=== PATIENT | female | born 1945 | race Caucasian/White ===

== ENCOUNTER 2018-06-08 09:07 | Emergency (ER) | payer MEDICARE, OTHER ==
[~2018-06-08] VITALS: Ht 167.6 cm; Wt 90.7 kg
[2018-06-08] MEDS ORDERED: ONDANSETRON HCL INJ 2 MG/ML VIAL IV STA (09:31)
[2018-06-08] MEDS ORDERED: SODIUM CHLORIDE 0.9% 1000ML 1,000 ML IV STA (09:31)
[2018-06-08] MEDS ORDERED: METHYLPREDNISOLONE SOD SUCC 125 MG/2ML VIAL IV STA (09:31)
[2018-06-08] MEDS ORDERED: MORPHINE SULFATE 2 MG/ML SYR IV STA (09:31)
[2018-06-08] MEDS ORDERED: FAMOTIDINE 20 MG/2 ML VIAL IV STA (09:35)
[2018-06-08 09:44] LABS: BASOPHILS % 0.4 % (0.0-1.0); EOSINOPHILS # (AUTO) 0.1 (0.0-0.4); EOSINOPHILS % 2.3 % (0.0-6.0); HEMATOCRIT 43.4 % (34.2-44.1); HEMOGLOBIN 14.4 g/dL (12.0-16.0); LYMPHOCYTES # (AUTO) 0.8 (1.0-3.2); LYMPHOCYTES % 14.6 % (18.0-39.1); MEAN CORPUSCULAR HEMOGLOBIN 29.4 pg (28-32); MEAN CORPUSCULAR HGB CONC 33.2 g/dL (31-35); MEAN CORPUSCULAR VOLUME 88.8 fL (81-99); MONOCYTES # (AUTO) 0.6 (0.2-0.8); MONOCYTES % 10.9 % (4.4-11.3); NEUTROPHILS # (AUTO) 4.1 (2.1-6.9); NEUTROPHILS % 71.3 % (38.7-80.0); PLATELET COUNT 185 x10e3/uL (140-360); RED BLOOD COUNT 4.89 x10e6/uL (3.6-5.1)
[2018-06-08] MEDS ORDERED: DIPHENHYDRAMINE HCL INJ 50 MG/ML VIAL IV ONE (09:45)
[2018-06-08 09:57] LABS: CLARITY,URINE SL CLOUDY (CLEAR); COLOR,URINE AMBER (YELLOW); LEUKOCYTE ESTERASE ,URINE TRACE (NEGATIVE); NITRITE,URINE NEGATIVE (NEGATIVE)
[2018-06-08 09:58] LABS: BILIRUBIN,URINE 2+ (NEGATIVE); KETONES,URINE NEGATIVE (NEGATIVE); PROTEIN,URINE DIPSTICK 1+ (NEGATIVE); URINE UROBILINOGEN 4 mg/dL (0.2 - 1)
[2018-06-08 10:07] LABS: BACTERIA,URINE MODERATE /HPF; EPITHELIAL CELLS,URINE MODERATE /LPF
[2018-06-08 10:10] LABS: ALANINE AMINOTRANSFERASE 19 IU/L (0-55); ALBUMIN 3.3 g/dL (3.5-5.0); ALKALINE PHOSPHATASE 58 IU/L (40-150); BLOOD UREA NITROGEN 20 mg/dL (7-26); BUN/CREATININE RATIO 25 (6-25); CALCIUM 9.8 mg/dL (8.4-10.2); CARBON DIOXIDE 25 mmol/L (22-29); CHLORIDE 99 mmol/L (98-107); CREATININE, SERUM 0.79 mg/dL (0.57-1.11); EST GLOMERULAR FILTRATION RATE > 60 ML/MIN (60-); GLUCOSE 120 mg/dL (74-118); SODIUM 136 mmol/L (136-145)
--- NOTE | 2018-06-08 12:37 | Diagnostic Imaging Report ---
EXAM: CT Abdomen and Pelvis WITHOUT contrast INDICATION: COMPARISON: None. TECHNIQUE: Abdomen and pelvis were scanned utilizing a multidetector helical scanner from the lung base to the pubic symphysis without administration of IV contrast. Absence of intravenous contrast decreases sensitivity for detection of focal lesions and vascular pathology. Coronal and sagittal reformations were obtained. Routine protocol was performed. IV CONTRAST: None. ORAL CONTRAST: Water RADIATION DOSE: Total DLP: 698.2 mGy*cm Estimated effective dose: (DLP x 0.015 x size factor) mSv COMPLICATIONS: None FINDINGS: LINES and TUBES: None. LOWER THORAX: A ground glass nodular opacity is present in the left lower lobe, partially seen. HEPATOBILIARY: Two calcified foci are noted in the liver, reflective of prior granulomatous disease. Multiple subcentimeter foci are present in the liver, too small to characterize, but likely cysts. There is a 1.2 cm lesion in the left hepatic lobe (18 HU). No biliary ductal dilation. GALLBLADDER: No radio-opaque stones or sludge. No wall thickening. SPLEEN: No splenomegaly. PANCREAS: No focal masses or ductal dilatation. ADRENALS: No adrenal nodules KIDNEYS/URETERS: No hydronephrosis. No cystic or solid mass lesions. No stones. GI TRACT: No abnormal distention, wall thickening, or evidence of bowel obstruction. There are diverticula within the colon without evidence of diverticulitis. Appendix is normal. PELVIC ORGANS/BLADDER: Unremarkable. LYMPH NODES: No lymphadenopathy. VESSELS: There is moderate atherosclerotic disease in the aorta and major arterial branches. PERITONEUM / RETROPERITONEUM: No free air or fluid. BONES: Unremarkable. SOFT TISSUES: Unremarkable. IMPRESSION: No acute abnormality in the abdomen or pelvis. Normal appendix. Sigmoid diverticulosis without CT evidence of diverticulitis. A 1.2 cm indeterminate left hepatic lobe lesion. If there is clinical suspicion for malignancy, correlation with prior imaging or an MRI with contrast may be considered for evaluation. Groundglass nodular opacity in the left lower lobe, which may be infectious or inflammatory. Per clinical history, the patient has a history of breast cancer and prior resection of left lower lung. Correlation with outside imaging or follow-up chest CT per protocol is recommended. Multiple subcentimeter hepatic lesions, to small to characterize, but likely represent cysts. Signed by: Dr. Donny Diaz MD on 06/08/2018 12:34 PM
[2018-06-08] MEDS ORDERED: GADOBENATE DIMEGLUMINE 0 ML IV ONE (14:04)
--- NOTE | 2018-06-08 15:34 | Diagnostic Imaging Report ---
EXAM: MR Abdomen WITHOUT Contrast INDICATION: \S\R/O LIVER METS \S\N COMPARISON: Same day CT TECHNIQUE: Multiplanar and multisequence imaging was performed of the abdomen without contrast. Exam aborted prior to completion secondary to patient request. In and out of phase, DWI/ADC, axial T2 FRFSE, coronal SSFSE, coronal 2D FIESTA FS were obtained. IV Contrast: None Oral Contrast: None Medications: None COMPLICATIONS: None FINDINGS: Motion artifacts, aortic pulsation artifacts, lack of IV contrast, and incomplete exam limits evaluation. LOWER THORAX: Previously noted left lower lobe groundglass opacities are better seen on the prior CT.. HEPATOBILIARY: Multiple T2 hyperintense lesions in the liver measuring up to 1.9 cm in the left hepatic lobe and 1.7 cm in the right hepatic lobe. Motion artifacts limit evaluation on opposed phase images. No biliary ductal dilation. GALLBLADDER: No stones or sludge. No wall thickening. SPLEEN: No splenomegaly. PANCREAS: No focal masses or ductal dilatation. ADRENALS: No adrenal nodules KIDNEYS/URETERS: No hydronephrosis. T2 hyperintense 0.7 centimeter lesion in the left inferior renal pole. GI TRACT: No abnormal distention, wall thickening, or evidence of bowel obstruction. LYMPH NODES: No lymphadenopathy. VESSELS: Limited evaluation. PERITONEUM / RETROPERITONEUM: No free fluid. BONES: No suspicious marrow signal abnormalities. SOFT TISSUES: Unremarkable. IMPRESSION: 1. Limited evaluation as exam was aborted prior to completion per patient request. 2. Previously noted lesions in the liver appear T2 hyperintense which could indicate cysts but are otherwise incompletely evaluated. Consider contrast-enhanced CT or ultrasound for further evaluation. Signed by: DR. Harsha Nunes MD on 06/08/2018 3:30 PM
[2018-06-08] MEDS ORDERED: CEFTRIAXONE SOD 1 GM VIAL IV ONE (15:45)
[2018-06-08] MEDS ORDERED: INSULIN REGULAR, HUMAN 100 UNIT/1 ML 3ML VIAL ONE (16:56)
== END 2018-06-08 16:36 | disposition home or self-care (01) ==
LOC: ER 09:07
DX: R10.31 Right lower quadrant pain (principal); R10.32 Left lower quadrant pain; N30.91 Cystitis, unspecified with hematuria
CPT/HCPCS: 36415; 74176; 74181; 80053; 81001; 85025; 87086; 99284; J0696; J2270; J2405; J7030

== ENCOUNTER 2019-02-18 05:15 | Emergency (ER) | payer MEDICARE, OTHER ==
[~2019-02-18] VITALS: Ht 167.6 cm; Wt 90.7 kg
--- OUTSIDE RECORDS SUMMARY | 2019-02-18 05:18 | XMS REPORT | Encounter Summary ---
Author Organization Unknown Address [address] [place] [id number] Phone [phone] Care Team Providers Care Fibreglass Lay Up Worker Name Role Phone Dr. Suzanna Reddy 3 [phone] Bianca Luis MD 3 [phone] Romi Cedeño MD 82 [phone] Deandra Ramirez MD 2 [phone] Deja Ware (Daughter) 61 [phone] Faraz Araya MD 107 [phone] Luis Barrios DPM 120 [phone] Kendra Freedman MD 198 [phone] Reason for Visit Medicare CPX WWE Instructions 1. Gynecologic examination pap, IG + HPV mRNA E6/E7 2. Malignant tumor of breast 3. Asthma 4. Body mass index 30+ - obesity body mass index: care instructions learning about healthy weight 5. Screening for malignant neoplasm of breast 6. Screening for osteoporosis 7. Screening for malignant neoplasm of colon 8. Elevated blood-pressure reading without diagnosis of hypertension Discussion Note: None recorded. Plan of Care Reminders Provider Appointments None recorded. Lab Pap, IG + HPV mRNA E6/E7 11/05/2018 [facility] Laboratory Referral None recorded. Procedures None recorded. Surgeries None recorded. Imaging None recorded. Medications Name Start Date Advair Diskus 250 mcg-50 mcg/dose powder for inhalation Inhale 2 puffs every 24 hours by inhalation route as needed. EpiPen 2-Juan 0.3 mg/0.3 mL injection, auto-injector PRN Xolair 2 injections Unknown strength ONCE A MONTH Zyrtec 10 mg tablet Take 1 tablet every day by oral route. Medications Administered None recorded. Vitals Height Weight BMI Blood Pressure 5 ft 4.6 in 196 lbs 33 kg/m2 140/90 mm[Hg] Lab Results None recorded. Allergies Code Code System Name Reaction Severity Status Onset 5933 RxNorm Iodine Active 12/30/2016 2670 RxNorm Codeine Vomiting Active 5933 RxNorm Iodine Rash Active Problems Name Status Onset Date Source Malignant Tumor of Breast Active 01/02/2017 Body Mass Index 30+ - Obesity Active 01/02/2017 Asthma Active 01/02/2017 Diarrhea Active 01/02/2017 Monocytosis Active 01/09/2017 Steatosis of Liver Active 01/09/2017 Tachycardia Active 01/09/2017 Elevated Blood-pressure Reading without Diagnosis of Hypertension Active 01/09/2017 Procedures Date Name Performed by 12/07/2016 Breast Surgery Information not available 12/21/2015 Colonoscopy Information not available Vaccine List Vaccine Type influenza, high dose seasonal 07/27/2016 influenza, unspecified formulation 06/22/2017 pneumococcal polysaccharide PPV23 07/27/2016 Tdap 10/09/2015 zoster 07/27/2016 Social History Smoking Status Former Smoker (1/2 PPD) Past Encounters 11/05/2018 Gynecologic Examination; Malignant Tumor of Breast; Asthma; Body Mass Index 30+ - Obesity; Screening for Malignant Neoplasm of Breast; Screening for Osteoporosis; Screening for Malignant Neoplasm of Colon; Elevated Blood-pressure Reading without Diagnosis of Hypertension Suzanna Reddy MD: [address] [place] [address], Ph. History of Present Illness Note:<div>73yo female presents for WWE with Pap. Last visit was [facility] on 09/17/18. Last Pap exam about 5yrs ago. No hx of abnormal Pap. No STDs. . No C- sections. Hx of tubal ligation in 1976. Menopause about age 49. Took HRT for several years, but then stopped. Hx of left breast cancer in 2016. Followed annually by Dr Deandra Guzman. </div><div>Is scheduled for mammogram in next month in Nov 2018.</div><div>Is scheduled to see YULIYA Shine next week.</div>< div>Is scheduled for next Xolair injection tomorrow with Dr Ontiveros. Goes monthly for one shot in each arm.</div><div>
</div><div>PMHx:</div><div>Asthma - entire life. Stable. Uses ProAir & Advair inhalers. Hospitalized in 2004 for partial lung resection for infection (thought it was cancer). Father from lung cancer at age 75yo (asbestos exposure). Mother had Alzheimers. Pt smoked briefly age 19, but didn't take it up. Prednisone as needed. 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 Has Epipen if needed.</div><div>Family hx of DM in brother & father.</div>< div>Left breast cancer - 2017. Had lumpectomy & XRT. Dr Ramirez. Goes annually to [facility] - had last mammogram in 06/2018.</div><div>Last colonoscopy 2015, Dr Araya - repeat in 5yrs.</div><div>Hx of tachycardia. Followed annually by cardiology, Dr. Cedeño in [place]. Last visit in 06/2018. Has white coat syndrome. Measures bp at home <140/90.</div><div>
</div>Pt without c/o today. No SOB or CP. No Lightheadedness. Review of Systems:ROS as noted in the [facility] Review of Systems Comprehensive General Adult ROS Reported By: Patient Constitutional: Constitutional: no fever Eyes: Eyes: no vision change Cardiovascular: Cardiovascular: no chest pain Respiratory: Respiratory: no cough, no wheezing, no shortness of breath Gastrointestinal: Gastrointestinal: no abdominal pain Neurologic: Neurologic: no loss of consciousness, no headaches Psychiatric: Psych: no depression, no alcohol abuse, no anxiety, no suicidal thoughts Physical Exam General Adult Exam (Female) Reported By: Patient Patient Access Registrar: Patient Access Registrar: present Constitutional: General Appearance: healthy-appearing, well-developed, obese. Level of Distress: NAD. Ambulation: ambulating normally Psychiatric: Insight: good judgement. Mental Status: active and alert, normal mood, normal affect. Orientation: to time, to place, to person. Memory: recent memory normal, remote memory normal Head: Head: normocephalic, atraumatic Eyes: Lids and Conjunctivae: non-injected, no discharge, no pallor. Pupils: PERRLA. EOM: EOMI. Sclerae: non-icteric ENMT: Ears: EACs clear, TMs clear. Hearing: no hearing loss. Oropharynx: moist mucous membranes, no erythema Neck: Neck: supple. Lymph Nodes: no cervical LAD. Thyroid: no enlargement, non- tender, no nodules Lungs: Respiratory effort: no dyspnea. Auscultation: breath sounds normal, good air movement, no wheezing, no rales/crackles Cardiovascular: Heart Auscultation: RRR, normal S1, normal S2, no murmurs. Neck vessels: no carotid bruits. Pulses including femoral / pedal: normal throughout Breast: Breast: normal appearance, no masses, no abnormal secretions, asymmetry; Well-healed scar left breast LLQ laterally Abdomen: Bowel Sounds: normal. Inspection and Palpation: soft, non-distended, no tenderness Female : External genitalia: normal, no lesions, no rash. Vagina: moist mucosa, no discharge, atrophic mucosa. Cervix: no discharge, no cervical motion tenderness, no inflammation, sample taken for Pap smear. Uterus: midline, smooth, normal size, non-tender. Adnexae: size WNL, no adnexal mass, no adnexal tenderness Musculoskeletal:: Motor Strength and Tone: normal motor strength. Joints, Bones, and Muscles: normal movement of all extremities. Extremities: no edema, no varicosities Neurologic: Gait and Station: normal gait. Cranial Nerves: grossly intact. Sensation: grossly intact Skin: Inspection and palpation: no rash, no lesions Back: Thoracolumbar Appearance: normal curvature
--- OUTSIDE RECORDS SUMMARY | 2019-02-18 05:18 | XMS REPORT ---
Author Author [facility] Address Unknown Phone Unavailable Care Team Providers Care Oil Derrick Operator Name Role Phone Adele MORLEY Unavailable Unavailable Problems This patient has no known problems. Allergies, Adverse Reactions, Alerts This patient has no known allergies or adverse reactions. Medications This patient has no known medications. Results Test Description Test Time Test Comments Text Results Atomic Results Result Comments BREAST ULTRASOUND BILATERAL 2018-12-18 10:24:25 - DIAG MAMM BILATERAL AJ CAD DIGITALBILATERAL DIGITAL DIAGNOSTIC MAMMOGRAM 3D/2D WITH CAD: 12/17/2018CLINICAL: Previous breast cancer. Digital breast tomosynthesis was performed in addition to routine CC and MLO views. Current mammographic images were evaluated by either a Nimbus Data M-Vu or a BR[employer]LF ImageChecker CAD (computer aided detection system). Comparison is made to exams dated 06/04/2018 [facility], 12/05/2017 mammogram, and 07/13/2017 mammogram - [facility]. There are scattered fibroglandular tissues in both breasts. There are post operative findings in the left breast. No suspicious mass, architectural distortion, malignant type calcification, or lymph node abnormality detected. INCOMPLETE ASSESSMENT: ADDITIONAL IMAGING EVALUATION RECOMMENDEDUltrasound pending for additional evaluation. Resume annual screening mammography in one year. - BREAST ULTRASOUND BILATERALULTRASOUND OF BOTH BREASTS AND BOTH AXILLA: 12/17/2018Comparison is made to exams dated 06/04/2018 mammogram, 12/05/2017 mammogram, and 07/13/2017 mammogram - [facility]. Real-time ultrasound of both breasts and both axilla was performed. No abnormalities were seen sonographically in either breast or either axilla. Clinical breast exam was unremarkable.IMPRESSION: NEGATIVE There is no sonographic evidence of malignancy. Patient has been informed that she should have a screening mammo gram and supplemental ultrasound in 1 year.Deandra Ramirez M.D. dm/:12/18/2018 10:24:25 Advertising Account Executive: Yazmin MOJICA, [facility] sent: BIRADS 1-2 Combo FU Letter Mammogram BI-RADS: 0 Indeterminate Ultrasound BI-RADS: 1 Negative DIAG MAMM BILATERAL AJ CAD DIGITAL 2018-12-18 10:24:25 - DIAG MAMM BILATERAL AJ CAD DIGITALBILATERAL DIGITAL DIAGNOSTIC MAMMOGRAM 3D/2D WITH CAD: 12/17/2018CLINICAL: Previous breast cancer. Digital breast tomosynthesis was performed in addition to routine CC and MLO views. Current mammographic images were evaluated by either a Nimbus Data M-Vu or a [employer] ImageChecker CAD (computer aided detection system). Comparison is made to exams dated 06/04/2018 [facility], 12/05/2017 mammogram, and 07/13/2017 mammogram - [facility]- . There are scattered fibroglandular tissues in both breasts. There are post operative findings in the left breast. No suspicious mass, architectural distortion, malignant type calcification, or lymph node abnormality detected. INCOMPLETE ASSESSMENT: ADDITIONAL IMAGING EVALUATION RECOMMENDEDUltrasound pending for additional evaluation. Resume annual screening mammography in one year. - BREAST ULTRASOUND BILATERALULTRASOUND OF BOTH BREASTS AND BOTH AXILLA: 12/17/2018Comparison is made to exams dated 06/04/2018 mammogram, 12/05/2017 mammogram, and 07/13/2017 mammogram - [facility]-. Real-time ultrasound of both breasts and both axilla was performed. No abnormalities were seen sonographically in either breast or either axilla. Clinical breast exam was unremarkable.IMPRESSION: NEGATIVE There is no sonographic evidence of malignancy. Patient has been informed that she should have a screening mammo gram and supplemental ultrasound in 1 year.Deandra Ramirez M.D. dm/:12/18/2018 10:24:25 Advertising Account Executive: Yazmin MOJICA, [facility] sent: BIRADS 1-2 Combo FU Letter Mammogram BI-RADS: 0 Indeterminate Ultrasound BI-RADS: 1 Negative MRI ABDOMEN WO 2018-06-08 15:21:00 [place] [address] Patient Name: ANA MARIA HATCH MR #: [id number] : 1945 Age/Sex: 72/F Req #: [id number] [facility] Physician: Ordered by: HARI MORLEY MD Report #: [id number] Location: ER Room/Bed: Procedure: [id number] MRI/MRI ABDOMEN WO Exam Date: Exam Time: REPORT STATUS: Signed EXAM: MR Abdomen WITHOUT Contrast INDICATION: COMPARISON: Same day CT TECHNIQUE: Multiplanar and multisequence imaging was performed of the abdomen without contrast. Exam aborted prior to completion secondary to patient request. In and out of phase, DWI/ADC, axial T2 FRFSE, coronal SSFSE, coronal 2D FIESTA FS were obtained. IV Contrast: None Oral Contrast: None Medications: None COMPLICATIONS: None FINDINGS: Motion artifacts, aortic pulsation artifacts, lack of IV contrast, and incomplete exam limits evaluation. LOWER THORAX: Previously noted left lower lobe groundglass opacities are better seen on the prior CT.. HEPATOBILIARY: Multiple T2 hyperintense lesions in the liver measuring up to 1.9 cm in the left hepatic lobe and 1.7 cm in the right hepatic lobe. Motion artifacts limit evaluation on opposed phase images. No biliary ductal dilation. GALLBLADDER: No stones or sludge. No wall thickening. SPLEEN: No splenomegaly. PANCREAS: No focal masses or ductal dilatation. ADRENALS: No adrenal nodules KIDNEYS/URETERS: No hydronephrosis. T2 hyperintense 0.7 centimeter lesion in the left inferior renal pole. GI TRACT: No abnormal distention, wall thickening, or evidence of bowel obstruction. LYMPH NODES: No lymphadenopathy. VESSELS: Limited evaluation. PERITONEUM / RETROPERITONEUM: No free fluid. BONES: No suspicious marrow signal abnormalities. SOFT TISSUES: Unremarkable. IMPRESSION: 1. Limited evaluation as exam was aborted prior to completion per patient request. 2. Previously noted lesions in the liver appear T2 hyperintense which could indicate cysts but are otherwise incompletely evaluated. Consider contrast-enhanced CT or ultrasound for further evaluation. Signed by: DR. Harsha Dempsey MD on 06/08/2018 3:30 PM Dictated By: HARSHA DEMPSEY MD 1530 Transcribed By: MARY on 06/08/18 1530 COPY TO: HARI MORLEY MD CT ABDOMEN/PELVIS WO 2018-06-08 12:13:00 [place] [address] Patient Name: ANA MARIA HATCH MR #: [id number] : 1945 Age/Sex: 72/F Req #: [id number] Adm Physician: Ordered by: HARI MORLEY MD Report #: [id number] Location: ER Room/Bed: Procedure: [id number] CT/CT ABDOMEN/PELVIS WO Exam Date: 06/08/18 Exam Time: 1130 REPORT STATUS: Signed EXAM: CT Abdomen and Pelvis WITHOUT contrast INDICATION: COMPARISON: None. TECHNIQUE: Abdomen and pelvis were scanned utilizing a multidetector helical scanner from the lung base to the pubic symphysis without administration of IV contrast. Absence of intravenous contrast decreases sensitivity for detection of focal lesions and vascular pathology. Coronal and sagittal reformations were obtained. Routine protocol was performed. IV CONTRAST: None. ORAL CONTRAST: Water RADIATION DOSE: Total DLP: 698.2 mGy*cm Estimated effective dose: (DLP x 0.015 x size factor) mSv COMPLICATIONS: None FINDINGS: LINES and TUBES: None. LOWER THORAX: A ground glass nodular opacity is present in the left lower lobe, partially seen. HEPATOBILIARY: Two calcified foci are noted in the liver, reflective of prior granulomatous disease. Multiple subcentimeter foci are present in the liver, too small to characterize, but likely cysts. There is a 1.2 cm lesion in the left hepatic lobe (18 HU). No biliary ductal dilation. GALLBLADDER: No radio-opaque stones or sludge. No wall thickening. SPLEEN: No splenomegaly. PANCREAS: No focal masses or ductal dilatation. ADRENALS: No adrenal nodules KIDNEYS/URETERS: No hydronephrosis. No cystic or solid mass lesions. No stones. GI TRACT: No abnormal distenti on, wall thickening, or evidence of bowel obstruction. There are diverticula within the colon without evidence of diverticulitis. Appendix is normal. PELVIC ORGANS/BLADDER: Unremarkable. LYMPH NODES: No lymphadenopathy. VESSELS: There is moderate atherosclerotic disease in the aorta and major arterial branches. PERITONEUM / RETROPERITONEUM: No free air or fluid. BONES: Unremarkable. SOFT TISSUES: Unremarkable. IMPRESSION: No acute abnormality in the abdomen or pelvis. Normal appendix. Sigmoid diverticulosis without CT evidence of diverticulitis. A 1.2 cm indeterminate left hepatic lobe lesion. If there is clinical suspicion for malignancy, correlation with prior imaging or an MRI with contrast may be considered for evaluation. Groundglass nodular opacity in the left lower lobe, which may be infectious or inflammatory. Per clinical history, the patient has a history of breast cancer and prior resection of left lower lung. Correlation with outside imaging or follow-up chest CT per protocol is recommended. Multiple subcentimeter hepatic lesions, to small to characterize, but likely represent cysts. Signed by: Dr. Timothy Carvalho MD on 06/08/2018 12:34 PM Dictated By: TIMOTHY CARVALHO MD 1234 Transcribed By: MARY on 06/08/18 1234 COPY TO: HARI MORLEY MD
[2019-02-18] MEDS ORDERED: HYDROCODONE/APAP 7.5MG-325MG 1 EA TAB PO PRN (05:30)
--- NOTE | 2019-02-18 06:26 | Diagnostic Imaging Report ---
Exam: AP pelvis and right hip History: Pain Comparison: None. Findings: No fracture or malalignment. Joint spaces preserved. No abnormal soft tissue calcification or soft tissue defect. Impression: No acute osseous abnormality Signed by: Dr. Juan J Pak M.D. on 02/18/2019 6:22 AM
== END 2019-02-18 07:06 | disposition home or self-care (01) ==
LOC: ER 05:15
DX: M25.551 Pain in right hip (principal); M70.71 Other bursitis of hip, right hip; J45.909 Unspecified asthma, uncomplicated; Z85.3 Personal history of malignant neoplasm of breast
CPT/HCPCS: 99283

== ENCOUNTER 2020-07-03 13:59 | Inpatient (IN) | payer MEDICARE, OTHER ==
[~2020-07-03] VITALS: Ht 167.6 cm; Wt 90.7 kg
[2020-07-03] MEDS ORDERED: METHYLPREDNISOLONE SOD SUCC 125 MG/2ML VIAL IV STA (14:07)
[2020-07-03] MEDS ORDERED: SODIUM CHLORIDE 0.9% 1000ML 1,000 ML IV STA (14:07)
[2020-07-03] MEDS ORDERED: ALBUTEROL/IPRATROPIUM 3 ML NEB ONE (14:12)
[2020-07-03] MEDS ORDERED: METHYLPREDNISOLONE SOD SUCC 125 MG/2ML VIAL ONE (14:13)
[2020-07-03] MEDS ORDERED: ALBUTEROL/IPRATROPIUM 3 ML NEB NEB ONE ×2 (14:15→17:30)
--- NOTE | 2020-07-03 15:19 | Diagnostic Imaging Report ---
TECHNIQUE: Frontal view of the chest. INDICATION: ^SOB ^[id number] ^[id number] COMPARISON: None DISCUSSION: Limited evaluation due to portable technique. Lines and hardware: Overlying EKG leads are noted Heart and mediastinum: Cardiomediastinal silhouette is within normal limits. Central vascular congestion is noted. Lungs and pleura: Prominent interstitial markings are noted. Left mid lung scarring is noted. Negative for focal consolidation, large effusion or pneumothorax. Soft tissues and bones: No acute abnormality. IMPRESSION: 1. Negative for focal consolidation. 2. Central vascular congestion and prominent interstitial markings can be seen in patients with fluid overload however findings are accentuated by portable AP technique. Signed by: Guy Crowe MD on 07/03/2020 3:15 PM
[2020-07-03 15:26] LABS: BASOPHILS # (AUTO) 0.1 (0.0-0.1); BASOPHILS % 0.8 % (0.0-1.0); EOSINOPHILS # (AUTO) 1.4 (0.0-0.4); EOSINOPHILS % 16.1 % (0.0-6.0); HEMATOCRIT 39.7 % (34.2-44.1); HEMOGLOBIN 12.6 g/dL (12.0-16.0); LYMPHOCYTES # (AUTO) 1.9 (1.0-3.2); LYMPHOCYTES % 22.5 % (18.0-39.1); MEAN CORPUSCULAR HEMOGLOBIN 28.6 pg (28-32); MEAN CORPUSCULAR HGB CONC 31.7 g/dL (31-35); MONOCYTES # (AUTO) 1.1 (0.2-0.8); MONOCYTES % 12.7 % (4.4-11.3); NEUTROPHILS # (AUTO) 4.1 (2.1-6.9); NEUTROPHILS % 47.6 % (38.7-80.0); PLATELET COUNT 301 x10e3/uL (140-360); RED BLOOD COUNT 4.41 x10e6/uL (3.6-5.1); RED CELL DISTRIBUTION WIDTH 13.6 % (11.7-14.4)
[2020-07-03 15:36] LABS: INR 0.93; PROTHROMBIN TIME 12.9 seconds (11.9-14.5)
[2020-07-03 15:37] LABS: PARTIAL THROMBOPLASTIN TIME 30.8 seconds (23.8-35.5)
[2020-07-03 15:44] LABS: ALANINE AMINOTRANSFERASE 128 IU/L (0-55); ALBUMIN 4.2 g/dL (3.5-5.0); ALBUMIN/GLOBULIN RATIO 1.4 (0.8-2.0); ALKALINE PHOSPHATASE 49 IU/L (40-150); ANION GAP 18.1 mmol/L (8-16); BLOOD UREA NITROGEN 10 mg/dL (7-26); BUN/CREATININE RATIO 15 (6-25); CARBON DIOXIDE 24 mmol/L (22-29); CHLORIDE 100 mmol/L (98-107); CREATINE KINASE 121 IU/L (29-168); CREATININE, SERUM 0.66 mg/dL (0.57-1.11); EST GLOMERULAR FILTRATION RATE > 60 ML/MIN (60-); GLUCOSE 89 mg/dL (74-118); MAGNESIUM 1.8 MG/DL (1.3-2.1); POTASSIUM 4.1 mmol/L (3.5-5.1); SODIUM 138 mmol/L (136-145)
[2020-07-03] MEDS ORDERED: ALBUTEROL SULF 0.083% NEB SOLN 3 ML NEB NEB PRN (18:15)
[2020-07-03] MEDS ORDERED: ONDANSETRON HCL INJ 2MG/ML 2ML 2 MG/ML VIAL IV PRN (18:15)
--- NOTE | 2020-07-03 18:26 | Emergency Department Note ---
History of Present Illnes History of Present Illness Chief Complaint: Respiratory History of Present Illness This is a 75 year old female 75 y/o female presents to ED with c/o of asthma attack, pt appeared to be in distress in triage. Pt immediately taken to rm 5 by this RN, Dr. Garcia at bedside and x 2 duonebs initiated. PIV inserted to R AC, 125 mg solumedrol IV given. Labs and blood cxs x 2 collected. Pt tachycardiac, tachypneic and hypertensive. Audible wheezing noted standing next to patient. RA sats 92%. Positive cough Historian: Patient Arrival Mode: Car Onset (how long ago): day(s) (2) Radiation: Reports non-radiation Severity: moderate Onset quality: gradual Timing of current episode: constant Progression: worsening Chronicity: recurrent Context: Denies recent illness Relieving factors: none Exacerbating factors: none Associated symptoms: Reports cough, Reports shortness of breath Past Medical/Family History Physician Review I have reviewed the patient's past medical and family history. Any updates have been documented here. Past Medical History Recent Fever: No Clinical Suspicion of Infectio: No New/Unexplained Change in Ment: No Past Medical History: Asthma, Cancer Other Medical History: LEFT BREAST LUMPECTOMY DX WITH CANCER BREAST CANCER Past Surgical History: Lumpectomy Other Surgery: LUMPECTOMY LEFT BREAST DX WITH CANCER 12/2016 LEFT PARTIAL LL LUNG REMOVED Social History Smoking Cessation: Former smoker Counseling Performed: Yes Alcohol Use: Social Any Illegal Drug Use: No TB Exposure/Symptoms: No Physically hurt or threatened: No Family History Family history of heart diseas: No Other Last Tetanus: UTD Any Pre-Existing Lines (PICC,: No Review of Systems Review of Systems Constitutional: Reports no symptoms EENTM: Reports no symptoms Cardiovascular: Reports no symptoms Respiratory: Reports as per HPI, Reports cough, Reports dyspnea, Reports dyspnea on exertion Gastrointestinal: Reports no symptoms Genitourinary: Reports no symptoms Musculoskeletal: Reports no symptoms Integumentary: Reports no symptoms Neurological: Reports no symptoms Psychological: Reports no symptoms Endocrine: Reports no symptoms Hematological/Lymphatic: Reports no symptoms Physical Exam Related Data Allergies: Coded Allergies: codeine (Verified Allergy, Unknown, 12/30/16) iodine (Verified Allergy, Unknown, 12/30/16) Triage Vital Signs Vital Signs Date Time Temp Pulse Resp B/P (MAP) Pulse Ox O2 Delivery O2 Flow Rate FiO2 07/03/20 14:25 100 Non-Rebreather 12.0 07/03/20 14:26 98.6 131 36 165/102 Vital signs reviewed: Yes Physical Exam CONSTITUTIONAL Constitutional: Present well-developed, Present well-nourished HENT HENT: Present normocephalic, Present atraumatic, Present oropharynx clear/moist, Present nose normal HENT L/R: Present left ext ear normal, Present right ext ear normal EYES Eyes: Reports PERRL, Reports conjunctivae normal NECK Neck: Present ROM normal PULMONARY Pulmonary: Present respiratory distress (tachypneic), Present other (diffuse exp wheezes) CARDIOVASCULAR Cardiovascular: Present regular rhythm, Present heart sounds normal, Present capillary refill normal, Present normal rate GASTROINTESTINAL Abdominal: Present soft, Present nontender, Present bowel sounds normal GENITOURINARY Genitourinary: Present exam deferred SKIN Skin: Present warm, Present dry MUSCULOSKELETAL Musculoskeletal: Present ROM normal NEUROLOGICAL Neurological: Present alert, Present oriented x 3, Present no gross motor or sensory deficits PSYCHOLOGICAL Psychological: Present mood/affect normal, Present judgement normal Results Laboratory Result Diagram: 07/03/20 1440 07/03/20 1440 Laboratory Laboratory Tests Test 07/03/20 14:49 07/03/20 14:40 White Blood Count 8.59 x10e3/uL (4.8-10.8) Red Blood Count 4.41 x10e6/uL (3.6-5.1) Hemoglobin 12.6 g/dL (12.0-16.0) Hematocrit 39.7 % (34.2-44.1) Mean Corpuscular Volume 90.0 fL (81-99) Mean Corpuscular Hemoglobin 28.6 pg (28-32) Mean Corpuscular Hemoglobin Concent 31.7 g/dL (31-35) Red Cell Distribution Width 13.6 % (11.7-14.4) Platelet Count 301 x10e3/uL (140-360) Neutrophils (%) (Auto) 47.6 % (38.7-80.0) Lymphocytes (%) (Auto) 22.5 % (18.0-39.1) Monocytes (%) (Auto) 12.7 % (4.4-11.3) Eosinophils (%) (Auto) 16.1 % (0.0-6.0) Basophils (%) (Auto) 0.8 % (0.0-1.0) Neutrophils # (Auto) 4.1 (2.1-6.9) Lymphocytes # (Auto) 1.9 (1.0-3.2) Monocytes # (Auto) 1.1 (0.2-0.8) Eosinophils # (Auto) 1.4 (0.0-0.4) Basophils # (Auto) 0.1 (0.0-0.1) Absolute Immature Granulocyte (auto 0.03 x10e3/uL (0-0.1) Prothrombin Time 12.9 seconds (11.9-14.5) Prothromb Time International Ratio 0.93 Activated Partial Thromboplast Time 30.8 seconds (23.8-35.5) Sodium Level 138 mmol/L (136-145) Potassium Level 4.1 mmol/L (3.5-5.1) Chloride Level 100 mmol/L (98-107) Carbon Dioxide Level 24 mmol/L (22-29) Anion Gap 18.1 mmol/L (8-16) Blood Urea Nitrogen 10 mg/dL (7-26) Creatinine 0.66 mg/dL (0.57-1.11) Estimat Glomerular Filtration Rate > 60 ML/MIN (60-) BUN/Creatinine Ratio 15 (6-25) Glucose Level 89 mg/dL (74-118) Calcium Level 10.0 mg/dL (8.4-10.2) Magnesium Level 1.8 MG/DL (1.3-2.1) Total Bilirubin 0.8 mg/dL (0.2-1.2) Aspartate Amino Transf (AST/SGOT) 76 IU/L (5-34) Alanine Aminotransferase (ALT/SGPT) 128 IU/L (0-55) Alkaline Phosphatase 49 IU/L (40-150) Creatine Kinase 121 IU/L (29-168) Creatine Kinase MB 2.60 ng/mL (0-5.0) Troponin I 0.018 ng/mL (0-0.300) B-Type Natriuretic Peptide < 10.0 pg/mL (0-100) Total Protein 7.2 g/dL (6.5-8.1) Albumin 4.2 g/dL (3.5-5.0) Globulin 3.0 g/dL (2.3-3.5) Albumin/Globulin Ratio 1.4 (0.8-2.0) Lab results reviewed: Yes Imaging Imaging results reviewed: Yes Procedures 12 Lead ECG Interpretation ECG Interpretation : ECG: ECG 1 Warehouse Shift Supervisor: Interpreted by ED physician Date: Jul 03, 2020 Time: 15:19 Rhythm: sinus tachycardia Rate: tachycardia BPM: 124 QRS axis: normal ST segments normal: Yes T waves normal: Yes Clinical Impression: abnormal ECG Assessment & Plan Medical Decision Making MDM cbc, chem, ecg, cardiacs, bnp, cxr - r/o asthma exac, pneumonia, bronchitis, chf, stemi/nstemi Reassessment Reassessment Admit to on-call Dr Moreno. Also spoke with Dr Good for consult Assessment & Plan Final Impression: (1) Asthma exacerbation (2) Bronchitis Depart Disposition: ADMITTED Last Vital Signs Date Time Temp Pulse Resp B/P (MAP) Pulse Ox O2 Delivery O2 Flow Rate FiO2 07/03/20 17:24 123 23 140/81 99 Nasal Cannula 2.0 07/03/20 14:26 98.6 Medications in the ED Albuterol/ Ipratropium 6 ml STK-MED ONCE .ROUTE ; Start 07/03/20 at 14:12; Stop 07/03/20 at 14:06; Status DC Methylprednisolone Sodium Succinate 125 mg STK-MED ONCE .ROUTE ; Start 07/03/20 at 14:13; Stop 07/03/20 at 14:06; Status DC Methylprednisolone Sodium Succinate 125 mg ONCE STAT IV Last administered on 07/03/20at 14:25; Admin Dose 125 MG; Start 07/03/20 at 14:07; Stop 07/03/20 at 14:16; Status DC Sodium Chloride 1,000 ml @ 0 mls/hr Q0M STAT IV Last administered on 07/03/20at 14:55; Admin Dose 999 MLS/HR; Start 07/03/20 at 14:07; Stop 07/03/20 at 14:11; Status DC Albuterol/ Ipratropium 6 ml ONCE ONCE NEB Last administered on 07/03/20at 17:20; Admin Dose 6 ML; Start 07/03/20 at 14:15; Stop 07/03/20 at 14:16; Status DC Albuterol/ Ipratropium 3 ml ONCE ONCE NEB Last administered on 07/03/20at 17:42; Admin Dose 3 ML; Start 07/03/20 at 17:30; Stop 07/03/20 at 17:31; Status DC Ceftriaxone Sodium 50 ml @ 100 mls/hr Q24H IV ; Start 07/03/20 at 17:45; Stop 07/10/20 at 17:44 Azithromycin 250 ml @ 200 mls/hr Q24H IV ; Start 07/03/20 at 18:30; Stop 07/10/20 at 18:29 JOON GARCIA MD Jul 03, 2020 18:26
[2020-07-03] MEDS: METHYLPREDNISOLONE SOD SUCC 125 MG/2ML VIAL IV SCH (22:22)
[2020-07-03] MEDS: CEFTRIAXONE SOD 1 GM/NS 50 ML 50 ML IV SCH (22:26)
[2020-07-03 23:45] VITALS: BP 124/74
--- NOTE | 2020-07-03 23:55 | NUR ---
Patient brought in from ER, Patient is alert and oriented, however, patient is extremely communicative during admission. Patient removed iv and telemetry, patient refused to put it back. Patient vitals checked were nv=617/64, hr 98, resp. 19, temp 97.8.
[2020-07-04] VITALS (9 sets, daily range): BP systolic 99–164; BP diastolic 58–95
[2020-07-04] MEDS: ALBUTEROL/IPRATROPIUM 3 ML NEB NEB SCH ×4 (00:20→19:00)
[2020-07-04 01:56] LABS: CREATINE KINASE MB 4.8 ng/mL (0-5.0)
[2020-07-04] MEDS: AZITHROMYCIN 500MG/NS 250 ML 250 ML IV SCH ×2 (02:00→19:09)
[2020-07-04] MEDS: SODIUM CHLORIDE 0.9% 1000ML 1,000 ML IV SCH ×3 (02:30→11:35)
[2020-07-04] MEDS ORDERED: LORAZEPAM 0.5 MG TAB PO PRN (04:45)
--- NOTE | 2020-07-04 05:18 | History and Physical ---
REASON FOR ADMISSION: Asthma. HISTORY OF PRESENT ILLNESS: The patient is a 75-year-old lady with a history of asthma, who presents with a couple of day history of shortness of breath, congestion, and wheezing, so she is being admitted for further evaluation. Of note, the patient has had a lot of anxiety and confusion overnight and since this is the first time, we admit the patient, unsure what her baseline status is. PAST MEDICAL HISTORY: Asthma. MEDICATIONS: None listed. ALLERGIES: CODEINE AND IODINE. SOCIAL HISTORY: . Nonsmoker, nondrinker. FAMILY HISTORY: Hypertension. PHYSICAL EXAMINATION: VITAL SIGNS: Temperature 97.7, pulse 109, blood pressure 136/90, sats 98% on room air. GENERAL: She is in no apparent distress, sitting up in bed, but according to nurses, she has removed her telemetry on multiple occasions as well as removed her IV on 3 different times and currently shows her IVs on the floor with her having a little bit of blood staining on her bedding. NECK: Supple. No lymphadenopathy. CARDIOVASCULAR: Tachycardic, regular rate and rhythm. No murmurs. LUNGS: Have decreased breath sounds with some wheezing noted, left greater than right. ABDOMEN: Good bowel sounds. Soft, nontender. EXTREMITIES: No clubbing or cyanosis. NEUROLOGIC: Nonfocal. Moves all extremities x4. She is alert to person, but not place or time. ASSESSMENT AND PLAN: 1. Asthma exacerbation. We will continue with current steroids, antibiotics, and nebulizer treatments, and consult Pulmonary. 2. Tachycardia. Appears to be to sinus, so we will continue telemetry. 3. Elevated liver function tests on blood tests. We will continue to monitor. 4. Confusion. We will monitor and she if improves as we treat, unsure what her baseline status is. 5. Anxiety. We will give her some Ativan p.r.n. 0.5 mg. Please see hospital chart for full details. MD ROBERTO You/SANG /[id number]
--- NOTE | 2020-07-04 05:20 | NUR ---
patient confused,wandering in the room, reported to Dr. Moreno made aware and ordered ativan, family called no response.
[2020-07-04] MEDS: METHYLPREDNISOLONE SOD SUCC 125 MG/2ML VIAL IV SCH (06:00)
--- NOTE | 2020-07-04 06:45 | NUR ---
Son called and message left, patient wants to leave [place]. Patient is not stable.
--- NOTE | 2020-07-04 07:00 | NUR ---
received report, patient is ambulating in the hallway with no mask, does not know where she is. patient has telemetry box in her purse and states that she is taking it with her to the police station and refuses to give it to staff. patient called a family friend who is a naval police coxswain and her communication was confused and disoriented. spoke with the individual who she called, and informed him that she is in the hospital and very confused.
[2020-07-04 07:04] LABS: BASOPHILS % 0.5 % (0.0-1.0); HEMATOCRIT 36.4 % (34.2-44.1); HEMOGLOBIN 11.8 g/dL (12.0-16.0); LYMPHOCYTES # (AUTO) 0.8 (1.0-3.2); LYMPHOCYTES % 20.1 % (18.0-39.1); MEAN CORPUSCULAR HEMOGLOBIN 28.9 pg (28-32); MEAN CORPUSCULAR HGB CONC 32.4 g/dL (31-35); MONOCYTES # (AUTO) 0.1 (0.2-0.8); MONOCYTES % 1.5 % (4.4-11.3); NEUTROPHILS % 76.9 % (38.7-80.0); PLATELET COUNT 338 x10e3/uL (140-360); RED BLOOD COUNT 4.09 x10e6/uL (3.6-5.1); RED CELL DISTRIBUTION WIDTH 13.4 % (11.7-14.4)
[2020-07-04 07:32] LABS: ALANINE AMINOTRANSFERASE 105 IU/L (0-55); ALBUMIN 4.2 g/dL (3.5-5.0); ALBUMIN/GLOBULIN RATIO 1.4 (0.8-2.0); ALKALINE PHOSPHATASE 54 IU/L (40-150); ANION GAP 18.3 mmol/L (8-16); BLOOD UREA NITROGEN 14 mg/dL (7-26); BUN/CREATININE RATIO 19 (6-25); CALCIUM 9.5 mg/dL (8.4-10.2); CARBON DIOXIDE 21 mmol/L (22-29); CHLORIDE 102 mmol/L (98-107); CHOL/HDL RATIO 3.7 (3.0-3.6); CHOLESTEROL 223 MD/DL (0-199); CREATINE KINASE 210 IU/L (29-168); CREATININE, SERUM 0.73 mg/dL (0.57-1.11); EST GLOMERULAR FILTRATION RATE > 60 ML/MIN (60-); GLUCOSE 195 mg/dL (74-118); HDL CHOLESTEROL 61 MG/DL (40-60); LDL CHOLESTEROL 145 MG/DL (60-130); POTASSIUM 4.3 mmol/L (3.5-5.1); SODIUM 137 mmol/L (136-145); TRIGLYCERIDES 83 MG/DL (0-149)
--- NOTE | 2020-07-04 07:45 | NUR ---
was able to get the number for the patient's and attempted to call to see if he could come to the hospital and sit with the patient. voicemail was left, notified charge nurse and [employer] supervisor of what is going on
--- NOTE | 2020-07-04 08:15 | NUR ---
talked with patient's and he is coming to the hospital to sit with the patient
[2020-07-04] MEDS ORDERED: PROVENTIL HFA6.7 GM INH (10:10)
[2020-07-04] MEDS ORDERED: CENTRUM WOMEN1 EACH PO (10:10)
[2020-07-04] MEDS ORDERED: ALBUTEROL0.63 MG/3 NEB (10:10)
[2020-07-04 13:08] LABS: ABG HCO3 25 mmol/L (22-26); ABG PCO2 41 mmHg (35-45); ABG PH 7.39 (7.35-7.45); ABG PO2 73 mmHg (80-105); ABG TCO2 26
--- NOTE | 2020-07-04 13:17 | NUR ---
lab reported positive blood cultures, notified Dr. Moreno. no new orders
[2020-07-04 13:36] LABS: CREATINE KINASE MB 7.6 ng/mL (0-5.0)
--- NOTE | 2020-07-04 13:54 | Consultation ---
DATE OF CONSULTATION: Pulmonary Consultation The patient of Dr. Moreno, and Dr. Jon. HISTORY OF PRESENT ILLNESS: Cristhian 75-year-old woman admitted with wheezing and shortness of breath of two days duration. History of bronchial asthma, history of childhood asthma. Smoked less than a pack a day for five years. ALLERGIES: TO CODEINE AND IODINE. She has had a history of a wedge resection for benign disease left lung 2004, history of left lumpectomy and radiation in 2017 for breast cancer, is followed at the . Born in [place], rating officer. FAMILY HISTORY: Noncontributory. PHYSICAL EXAMINATION: GENERAL: The patient is somewhat confused. She is accompanied by her . VITAL SIGNS : Temperature 97.4, pulse 116, respirations 20, blood pressure 164/90. HEAD: Normocephalic, atraumatic. EYES: Extraocular movements are intact. LUNGS: She is sitting in a chair, wheezing in all lung [place]. HEART: Regular rhythm. ABDOMEN: Nontender. EXTREMITIES: Nonedematous. IMPRESSION: Status asthmaticus, confusion, presumably related to corticosteroids. COVID serology is pending. PLAN: Resume Advair, which she takes intermittently at home. Add montelukast. Decrease corticosteroids in view of apparent CAN CAPPER toxicity. Check blood gases as well. Chest x-ray appears essentially clear. There is suggestion of volume overload. Atypical infection is not excluded. Currently, on azithromycin and Rocephin. We will reduce IV fluids. There is no evidence of congestive heart failure. Liver functions minimally elevated. Thank you for this kind referral. Jabari Arthur MD DS/MODL /[id number]
[2020-07-04] MEDS: CEFTRIAXONE SOD 1 GM/NS 50 ML 50 ML IV SCH (17:58)
[2020-07-04] MEDS: SALMETEROL/FLUTICASONE 500/50 INH SCH (19:00)
--- NOTE | 2020-07-04 19:10 | NUR ---
Received patient awake, not in distress, at bedside, call light within easy reach, advised to call anytime when needed. Will continue to monitor closely
[2020-07-04] MEDS: METHYLPREDNISOLONE SOD SUCC 40 MG/ML VIAL 1ML IV SCH (21:08)
[2020-07-04] MEDS: MONTELUKAST SODIUM 10 MG TAB PO SCH (21:08)
[2020-07-04] MEDS: LORAZEPAM INJ 2 MG/ML VIAL IV PRN (23:53)
--- NOTE | 2020-07-04 23:53 | NUR ---
called, patient is getting anxious and sob, requested to give Ativan to patient, will continue to monitor closely
[2020-07-05] VITALS (7 sets, daily range): BP systolic 124–150; BP diastolic 67–89
--- NOTE | 2020-07-05 | NUR ---
Called RT for patient's due breathing treatment
[2020-07-05] MEDS: ALBUTEROL/IPRATROPIUM 3 ML NEB NEB SCH ×5 (00:30→22:10)
--- NOTE | 2020-07-05 01:12 | Progress Note ---
DATE: SUBJECTIVE: The patient had an eventful day where she became much more confused after my rounds this morning to the point that we had allowed the who come here with her, which helped tremendously. She also started growing blood cultures with gram-positive cultures and two blood cultures. OBJECTIVE: CURRENT VITAL SIGNS: Temperature 98.1, pulse 108, blood pressure 130/92, sats 94% on nasal cannula. GENERAL: She is in no apparent distress, sitting up in bed. CARDIOVASCULAR: Regular rate and rhythm. LUNGS: Have bilateral wheezing. ABDOMEN: Soft. EXTREMITIES: No clubbing or cyanosis. NEUROLOGIC: Moves all extremities x4. ASSESSMENT AND PLAN: 1. Sepsis, secondary to pneumonia. Continue with her antibiotics, Rocephin, and azithromycin and await for the culture data. 2. Asthma exacerbation. Continue with her Solu-Medrol and nebulizer treatments. 3. Anxiety disorder. Continue lorazepam and her sitting with her. 4. Anemia. Continue to monitor. Please see hospital chart for full details. MD ROBERTO You/SANG /[id number]
[2020-07-05 05:30] LABS: BASOPHILS % 0.1 % (0.0-1.0); HEMATOCRIT 31.4 % (34.2-44.1); LYMPHOCYTES # (AUTO) 0.7 (1.0-3.2); LYMPHOCYTES % 8.4 % (18.0-39.1); MEAN CORPUSCULAR HEMOGLOBIN 29.4 pg (28-32); MEAN CORPUSCULAR HGB CONC 31.8 g/dL (31-35); MEAN CORPUSCULAR VOLUME 92.4 fL (81-99); MONOCYTES # (AUTO) 0.4 (0.2-0.8); MONOCYTES % 4.7 % (4.4-11.3); NEUTROPHILS # (AUTO) 7.1 (2.1-6.9); NEUTROPHILS % 86.1 % (38.7-80.0); PLATELET COUNT 258 x10e3/uL (140-360); RED CELL DISTRIBUTION WIDTH 13.7 % (11.7-14.4)
[2020-07-05] MEDS: SODIUM CHLORIDE 0.9% 1000ML 1,000 ML IV SCH (05:48)
[2020-07-05 05:49] LABS: ANION GAP 12.2 mmol/L (8-16); BLOOD UREA NITROGEN 14 mg/dL (7-26); BUN/CREATININE RATIO 23 (6-25); CALCIUM 8.9 mg/dL (8.4-10.2); CARBON DIOXIDE 26 mmol/L (22-29); CHLORIDE 107 mmol/L (98-107); CREATININE, SERUM 0.62 mg/dL (0.57-1.11); EST GLOMERULAR FILTRATION RATE > 60 ML/MIN (60-); GLUCOSE 139 mg/dL (74-118); POTASSIUM 4.2 mmol/L (3.5-5.1); SODIUM 141 mmol/L (136-145)
--- NOTE | 2020-07-05 06:47 | Diagnostic Imaging Report ---
EXAMINATION: CHEST SINGLE (PORTABLE) INDICATION: ^sob COMPARISON: 07/03/2020 FINDINGS: AP view TUBES and LINES: None. LUNGS: Lungs are well inflated. Central vascular congestion. Unchanged left midlung linear atelectasis/scarring or suture line. PLEURA: No pleural effusion or pneumothorax. HEART AND MEDIASTINUM: The cardiomediastinal silhouette is enlarged. BONES AND SOFT TISSUES: No acute osseous lesion. Soft tissues are unremarkable. UPPER ABDOMEN: No free air under the diaphragm. IMPRESSION: Enlarged cardiomediastinal silhouette and central vascular congestion, not significantly changed from prior exam. Signed by: Dr. Neal Madsen MD on 07/05/2020 6:44 AM
[2020-07-05] MEDS: SALMETEROL/FLUTICASONE 500/50 INH SCH ×3 (07:50→22:11)
[2020-07-05] MEDS: METHYLPREDNISOLONE SOD SUCC 40 MG/ML VIAL 1ML IV SCH ×2 (09:27→20:50)
--- OUTSIDE RECORDS SUMMARY | 2020-07-05 16:17 | XMS REPORT | Continuity of Care Document ---
Author Author [facility] t Organization [facility] Address [address] [place] [address] Phone Unavailable Care Team Providers Care City Comptroller Name Role Phone NONSTAFF PCP Unavailable CHAS SERVIN Attphys Unavailable Jay GAMA Attphys Unavailable Adele MORLEY Attphys Unavailable CHAS SERVIN Admphys Unavailable Payers Payer Name Policy Type Policy Number Effective Date Expiration Date patito Medicare A & B [id number] 2009 00:00:00 [facility] [employer] Medicare [id number] [facility] Miscellaneous Indemnity [id number] [facility] Problems Condition Name Condition Details Condition Category Status Onset Date Resolution Date Last Treatment Date Treating Clinician Comments Source Monocytosis Monocytosis Problem Active 2017-01-09 00:00:00 [facility] Steatosis of liver Steatosis of Liver Problem Active 2017-01-09 00:00:0 0 [facility] Tachycardia Tachycardia Problem Active 2017-01-09 00:00:00 [facility] Elevated blood-pressure reading without diagnosis of h ypertension Elevated Blood-pressure Reading without Diagnosis of Hypertension Problem Act job 2017-01-09 00:00:00 [facility] Malignant tumor of breast Malignant Tumor of Breast Problem Ac tive 2017-01-02 00:00:00 [facility] Body mass index 30+ - obesity Body Mass Index 30+ - Obesity Problem Active 2017-01-02 00:00:00 [facility] Asthma Asthma Problem Active 2017-01-02 00:00:00 [facility] Diarrhea Diarrhea Problem Active 2017-01-02 00:00:00 [facility] Sepsis Sepsis Problem Active [facility] Allergies, Adverse Reactions, Alerts Allergy Name Allergy Type Status Severity Reaction(s) Onset Date Inacti ve Date Treating Clinician Comments Source Codeine Allergy to substance Active Vomiting 2019-04-09 00:00:00 [facility] Iodinated Contrast Media DA Active U 2019-04-09 00:00:00 [facility] codeine DA Active U 2019-04-09 00:00:00 [facility] adhesive tape DA Active MO 2019-04-09 00:00:00 [facility] Iodine Allergy to Substance Active 2016-12-30 00:00:00 [facility] Codeine Allergy to Substance Active 2016-12-30 00:00:00 [facility] Iodinated Contrast- Oral and IV Dye DA Active U 2016-11-10 3 00:00:00 [facility] codeine DA Active U 2016-12-01 00:00:00 [facility] Social History Smoking Status Start Date Stop Date Source Former Smoker [facility] akintice Medications Ordered Medication Name Filled Medication Name Start Date Stop Da te Current Medication? Ordering Clinician Indication Dosage Frequency Signature (SIG) Comments Components Source ciprofloxacin 750 mg tablet Take 1 table t twice a day by oral route for 10 days. ciprofloxacin 750 mg tablet Take 1 table t twice a day by oral route for 10 days. 2020-05-28 00:00:00 No 1 BID cipr ofloxacin 750 mg tablet Take 1 tablet twice a day by oral route for 10 days. [facility] albuterol sulfate HFA 90 mcg/actuation a erosol inhaler Inhale 2 puffs every day by inhalation route as needed. albuterol sulfate HFA 90 mcg/actuation a erosol inhaler Inhale 2 puffs every day by inhalation route as needed. No albuterol sulfate HFA 90 mcg/actuation aerosol inhaler Inhale 2 puffs every day by inhalation route as needed. [facility] amil Practice EpiPen 2-Juan 0.3 mg/0.3 mL injection, auto-injector MS N EpiPen 2-Juan 0.3 mg/0.3 mL injection, auto-injector PRN No EpiPen 2-Juan 0.3 mg/0.3 mL injection, auto-injector PRN [facility] makenzie Practice ipratropium 0.5 mg-albuterol 3 mg (2.5 mg base)/3 mL n ebulization soln PRN ipratropium 0.5 mg-albuterol 3 mg (2.5 mg base)/3 mL nebulization soln PRN No ipratropium 0.5 mg-albuterol 3 mg (2.5 mg base)/3 mL nebulization soln PRN [facility] ice montelukast 10 mg tablet montelukast 10 mg tablet No montelukast 10 mg tablet [facility] ice prednisone 10 mg tablet prednisone 10 mg tablet No prednisone 10 mg tablet [facility] ice tramadol 50 mg tablet Take 1 tablet every 4 hours by o ral route for 7 days. tramadol 50 mg tablet Take 1 tablet every 4 hours by oral route for 7 days. No 1 Q4H tramadol 50 mg tablet Take 1 tablet every 4 hours by oral route for 7 days. [facility] ice Xolair 2 injections Unknown strength ONCE A MONTH Xola ir 2 injections Unknown strength ONCE A MONTH No Xo lair 2 injections Unknown strength ONCE A MONTH [facility] ice Immunizations Ordered Immunization Name Filled Immunization Name Date Status Comments Source pneumococcal conjugate PCV 13 pneumococcal conjugate PCV 13 2019 16:49:00 Completed [facility] influenza, high dose seasonal influenza, high dose seasonal 2018 13:57:00 Completed [facility] influenza, unspecified formulation influenza, unspecified fo rmulation 2017-06-22 00:00:00 Completed [facility] ice pneumococcal polysaccharide PPV23 pneumococcal polysaccharid e PPV23 2016-07-27 00:00:00 Completed [facility] ice zoster live zoster live 2016-07-27 00:00:00 Completed Delicia pete [facility] influenza, high dose seasonal influenza, high dose seasonal 2015 00:00:00 Completed [facility] Tdap Tdap 2015-10-09 00:00:00 Completed Demond de los santos [facility] pneumococcal polysaccharide PPV23 pneumococcal polysaccharid e PPV23 2013-07-22 00:00:00 Completed [facility] ice Vital Signs Vital Name Observation Time Observation Value Comments Source BP Diastolic 2020-05-28 00:00:00 70 mm[Hg] [facility] Height 2020-05-28 00:00:00 64.6 [in_i] [facility] BMI (Body Mass Index) 2020-05-28 00:00:00 30.8 kg/m2 [facility] BP Systolic 2020-05-28 00:00:00 132 mm[Hg] [facility] Body Weight 2020-05-28 00:00:00 182.8 [lb_av] [facility] BP Diastolic 2020-04-07 00:00:00 74 mm[Hg] [facility] Height 2020-04-07 00:00:00 64.6 [in_i] [facility] BMI (Body Mass Index) 2020-04-07 00:00:00 30.3 kg/m2 [facility] BP Systolic 2020-04-07 00:00:00 183 mm[Hg] [facility] Body Weight 2020-04-07 00:00:00 180 [lb_av] [facility] BP Diastolic 2019-11-18 00:00:00 86 mm[Hg] [facility] Height 2019-11-18 00:00:00 64.6 [in_i] [facility] BMI (Body Mass Index) 2019-11-18 00:00:00 32.9 kg/m2 [facility] BP Systolic 2019-11-18 00:00:00 160 mm[Hg] [facility] Body Weight 2019-11-18 00:00:00 195 [lb_av] [facility] BP Diastolic 2019-09-24 00:00:00 90 mm[Hg] [facility] Height 2019-09-24 00:00:00 64.6 [in_i] [facility] BMI (Body Mass Index) 2019-09-24 00:00:00 34 kg/m2 [facility] BP Systolic 2019-09-24 00:00:00 152 mm[Hg] [facility] Body Weight 2019-09-24 00:00:00 202 [lb_av] [facility] BP Diastolic 2019-06-18 00:00:00 76 mm[Hg] [facility] Height 2019-06-18 00:00:00 64.6 [in_i] [facility] BMI (Body Mass Index) 2019-06-18 00:00:00 32.7 kg/m2 [facility] BP Systolic 2019-06-18 00:00:00 140 mm[Hg] [facility] Body Weight 2019-06-18 00:00:00 194 [lb_av] [facility] BP Diastolic 2018-11-05 00:00:00 90 mm[Hg] [facility] Height 2018-11-05 00:00:00 64.6 [in_i] [facility] BMI (Body Mass Index) 2018-11-05 00:00:00 33 kg/m2 [facility] BP Systolic 2018-11-05 00:00:00 140 mm[Hg] [facility] Body Weight 2018-11-05 00:00:00 196 [lb_av] [facility] Procedures Procedure Date / Time Performed Performing Clinician Sour e MAMMO, screening, digital, bilateral 2020-05-28 00:00:[address] [facility] [address] of abdomen and pelvis without contrast 2018-06-08 00:00:00 HARI SALCEDO [facility] Magnetic resonance imaging of abdomen without contrast 06-08 00:00:00 HARI MORLEY [facility] Breast Surgery 2016-12-07 00:00:00 [facility] javad [facility] Colonoscopy 2015-12-21 00:00:00 [facility] ly [facility] Operation on Lung 2004-10-09 00:00:00 [facility] Abdoulaye kapoor [facility] Plan of Care Planned Activity Planned Date Details Comments Source Diagnostic Test Pending 2020-05-28 00:00:00 CBC w/ auto diff [code = CBC w/ auto diff] [facility] Diagnostic Test Pending 2020-05-28 00:00:00 CMP, serum or pl asma [code = CMP, serum or plasma] [facility] Diagnostic Test Pending 2020-05-28 00:00:00 TSH, serum or pl asma [code = TSH, serum or plasma] [facility] Diagnostic Test Pending 2020-05-28 00:00:00 urinalysis, dips tick [code = urinalysis, dipstick] [facility] Diagnostic Test Pending 2020-05-28 00:00:00 lipid panel, ser um [code = lipid panel, serum] [facility] Diagnostic Test Pending 2020-05-28 00:00:00 hepatitis C viru s RNA, quant, PCR, serum or plasma [code = hepatitis C virus RNA, quant, PCR, serum or plasma] [facility] Diagnostic Test Pending 2020-05-28 00:00:00 HbA1c (hemoglobi n A1c), blood [code = HbA1c (hemoglobin A1c), blood[facility] 2020-05-28 00:00:00 culture, urine [ code = culture, urine] [facility] Future Appointment 2020-08-28 00:00:00 Jennifer Daniels, [address]; [address], [place] [address] [facility] Instructions [facility] Encounters Start Date/Time End Date/Time Encounter Type Admission Type Attendi [facility] Care Department Encounter ID Source 2020-05-28 00:00:00 2020-05-28 00:00:00 Jennifer ware MD: [address], [address], [place] [address], Ph. [facility] Medical - VM_HOU_[facility] [id number] [facility] 2020-04-07 00:00:00 2020-04-07 00:00:00 Karen Lyn MD: [id number] [facility], [address], [place] [address], Ph. [facility] Medical - VM_HOU_[place] ([place]) [id number] [facility] e 2019-11-18 00:00:00 2019-11-18 00:00:00 Jennifer ware MD: [address], [address], [place] [address], Ph. [facility] Medical - VM[facility]HOU[facility] [id number] [facility] 2019-09-24 00:00:00 2019-09-24 00:00:00 Ty Qureshi Jr, MD: [address], [address], [place] [address], Ph. [facility] - [facility]HOU[facility] [id number] [facility] 2019-06-18 00:00:00 2019-06-18 00:00:00 Jennifer ware MD: [address], [address], [place] [address], Ph. [facility] [id number] [facility] 2019-02-18 05:15:00 2019-02-18 07:06:00 Departed Emergency Room 1 CYDNEY GAMA [facility] [id number] [facility] 2018-11-05 00:00:00 2018-11-05 00:00:00 Suzanna Reddy MD: [address] [place] [address], Ph. [facility] [id number] [facility] 2018-06-08 09:07:00 2018-06-08 16:36:00 Departed Emergency Room 1 HARI MORLEY [facility] [id number] [facility] Results Test Description Test Time Test Comments Results Result Comments Source CHEST SINGLE (PORTABLE) 2020-07-05 06:42:00 [place] [address] Patient Name: ABRAN HATCH MR #: [id number] : 1945 Age/Sex: 75/F Req #: [id number] Adm Physician: CHAS SERVIN MD Ordered by: LUIS E BOWENS MD Report #: [id number] Location: MED/SURG2 Room/Bed: [facility] Procedure: [id number] DX/CHEST SINGLE (PORTABLE) Exam Date: Exam Time: REPORT STATUS: Signed EXAMINATION: CHEST SINGLE (PORTABLE) INDICATION: sob COMPARISON: 07/03/2020 FINDINGS: AP view TUBES and LINES: None. LUNGS: Lungs are well inflated. Central vascular congestion. Unchanged left midlung linear atelectasis/sca rring or suture line. PLEURA: No pleural effusion or pneumothorax. HEART AND MEDIASTINUM: The cardiomediastinal silhouette is enlarged. BONES AND SOFT TISSUES: No acute osseous lesion. Soft tissues are unremarkable. UPPER ABDOMEN: No free air under the diaphragm. IMPRESSION: Enlarged cardiomediastinal silhouette and central vascular congestion, not significantly changed from prior exam. Signed by: Dr. Иван Cerda MD on 07/05/2020 6:44 AM Dictated By: ИВАН CERDA MD 3 Transcribed By: MARY on 07/05/20643 COPY TO: LUIS E BOWENS MD CHEST SINGLE (PORTABLE) 2020-07-03 15:14:00 [place] [address] Patient Name: ABRAN HATCH MR #: [id number] : 1945 Age/Sex: 75/F Req #: [id number] Adm Physician: Ordered by: JOON GARCIA MD Report #: [id number] Location: ER Room/Bed: Procedure: [id number] DX/CHEST SINGLE (PORTABLE) Exam Date: 07/03/20 Exam Time: 1422 REPORT STATUS: Signed TECHNIQUE: Frontal view of the chest. INDICATION: SOB [id number] COMPARISON: None DISCUSSION: Limited evaluation due to portable technique. Lines and hardware: Overlying EKG leads are noted Heart and mediastinum: Cardiomedia stinal silhouette is within normal limits. Central vascular congestion is noted. Lungs and pleura: Prominent interstitial markings are noted. Left mid lung scarring is noted. Negative for focal consolidation, large effusion or pneumothorax. Soft tissues and bones: No acute abnormality. IMPRESSION: 1. Negative for focal consolidation. 2. Central vascular congestion and prominent interstitial markings can be seen in patients with fluid overload however findings are accentuated by portable AP technique. Signed by: Guy Crowe MD on 07/03/2020 3:15 PM Dictated By: GUY CROWE MD 14 Transcribed By: MARY on 07/03/201514 COPY TO: JOON GARCIA MD DIAG MAMM BILATERAL AJ CAD DIGITAL 2020-06-23 10:12:21 - DIAG MAMM BILATERAL AJ CAD DIGITALBILATERAL DIGITAL DIAGNOSTIC MAMMOGRAM 3D/2D WITH CAD: 06/23/2020CLINICAL: Follow up to previous exam. Digital breast tomosynthesis was performed in addition to routine CC and MLO views. Current mammographic images were evaluated by either a BrandProject M-Vu or a Fingerprint ImageChecker CAD (computer aided detection system). Comparison is made to exams dated 12/17/2018 mammogram, 06/04/2018 mammogram, and 12/05/2017 mammogram - [facility] There are scattered fibroglandular tissues in both breasts. There are post operative findings in the left breast. No suspicious mass, architectural distortion, malignant type calcification, or lymph node abnormality detected. INCOMPLETE: ADDITIONAL IMAGING EVALUATION NEEDEDBilateral ultrasound pending for additional evaluation. - BREAST ULTRASOUND BILATERALULTRASOUND OF BOTH BREASTS AND BOTH AXILLA: 06/23/2020Comparison is made to exams dated 12/17/2018 mammogram, 06/04/2018 mammogram, and 12/05/2017 mammogram - [facility]-. Real-time ultrasound of both breasts and both axilla and clinical breast exam were performed. No abnormalities were seen sonographically in either breast or either axilla. Seroma persists in the left breast at 6 o'clock. IMPRESSION: NEGATIVE There is no sonographic evidence of malignancy. Patient has been informed that she should have screening mammogram and supplemental ultrasound in 1 year.Deandra Ramirez M.D. dm/:06/23/2020 10:12:21 Autobody Technician: Eileen MOJICA, [facility]-FWletter sent: BIRADS 1-2 Combo FU Letter Mammogram BI-RADS: 0 Incomplete: Additional Imaging Evaluation Needed Ultrasound BI-RADS: 1 Negative BREAST ULTRASOUND BILATERAL 2020-06-23 10:12:21 - DIAG MAMM BILATERAL AJ CAD DIGITALBILATERAL DIGITAL DIAGNOSTIC MAMMOGRAM 3D/2D WITH CAD: 06/23/2020CLINICAL: Follow up to previous exam. Digital breast tomosynthesis was performed in addition to routine CC and MLO views. Current mammographic images were evaluated by either a BrandProject M-Vu or a Fingerprint ImageChecker CAD (computer aided detection system). Comparison is made to exams dated 12/17/2018 mammogram, 06/04/2018 mammogram, and 12/05/2017 mammogram - [facility]-. There are scattered fibroglandular tissues in both breasts. There are post operative findings in the left breast. No suspicious mass, architectural distortion, malignant type calcification, or lymph node abnormality detected. INCOMPLETE: ADDITIONAL IMAGING EVALUATION NEEDEDBilateral ultrasound pending for additional evaluation. - BREAST ULTRASOUND BILATERALULTRASOUND OF BOTH BREASTS AND BOTH AXILLA: 06/23/2020Comparison is made to exams dated 12/17/2018 mammogram, 06/04/2018 mammogram, and 12/05/2017 mammogram - [facility]-. Real-time ultrasound of both breasts and both axilla and clinical breast exam were performed. No abnormalities were seen sonographically in either breast or either axilla. Seroma persists in the left breast at 6 o'clock. IMPRESSION: NEGATIVE There is no sonographic evidence of malignancy. Patient has been informed that she should have screening mammogram and supplemental ultrasound in 1 year.Deandra Ramirez M.D. dm/:06/23/2020 10:12:21 Autobody Technician: Eileen MOJCIA, [facility]-FWletter sent: BIRADS 1-2 Combo FU Letter Mammogram BI-RADS: 0 Incomplete: Additional Imaging Evaluation Needed Ultrasound BI-RADS: 1 Negative - DUP VEIN ALLEN 2019-12-03 12:10:00 Name: BLAINE RUIZ SAUNDRA HACKETT [facility] : 1945 Age/S: 74 / F [address] [place], [place] [address]vd Unit #: [id number] Loc: [place] [address] Phys: Дмитрий Jon MD Acct: [id number] Dis Date: Status: REG CLI PHONE #: [phone] Exam Date: 12/03/2019 1152 FAX #: [phone] Reason: R60.9, EDEMA, UNSPECIFIED. EXAMS: CPT CODE: [id number] DUP VEIN ALLEN [id number] EXAMINATION: Bilateral lower extremity venous Doppler December 03, 2019. CLINICAL HISTORY: R 60.9, edema. COMPARISON: None FINDINGS: Sonographic evaluation of the bilateral lower extremities was performed from the common femoral vein through the popliteal vein using grayscale, color Doppler, and spectral analysis. The examination demonstrates normal compressibility, flow, respiratory variation, and response to augmentation throughout. Visu alized posterior tibial calf veins appear patent. IMPRESSION: No sonographic evidence of deep venous thrombosis in either thigh. at 1210 Reported and signed by: Alvino Akhtar M.D. CC: Дмитрий Jon MD; Suzanna Reddy MD Technologist: Abran Olsen RDMS(Elly)(BR) Trnscb Date/Time: 12/03/2019 (1210) tCARSON Orig Print D/T: S: 12/03/2019 (1213) Probe: PAGE 1 Signed Report TOTAL T3 - ICMA 2019-12-03 08:10:00 Test Item TOTAL T3 - ICMA (test code = T3) 75 ng/dL 71-180 Performed At: [facility] [address] [id number] Mike Thompson MD Ph:[phone] FAX:[phone]:[phone] W/AUTO [id number] 14:29:00* Test Item Value Reference Range Interpretation Comments WHITE BLOOD CELL (test code = WBC) 9.30 x10 3/uL 4.5-11.0 RED BLOOD CELL (test code = RBC) 4.19 x10 6/uL 3.54-5.02 N HEMOGLOBIN (test code = HGB) 12.4 g/dL 11.0-15.0 N HEMATOCRIT (test code = HCT) 40.0 % 33.0-45.0 N MEAN CELL VOLUME (test code = MCV) 95.5 fL 81.0-99.0 N MEAN CELL HGB (test code = MCH) 29.6 pg 27.0-33.0 N MEAN CELL HGB CONCETRATION (test code = MCHC) 31.0 g/dL 33.0-37. 0 L RED CELL DISTRIBUTION WIDTH CV (test code = RDW) 12.4 % 11.5- 14.5 N RED CELL DISTRIBUTION WIDTH SD (test code = RDW-SD) 43.6 fL 37 .0-54.0 N PLATELET COUNT (test code = PLT) 359 x10 3/uL 150-400 N MEAN PLATELET VOLUME (test code = MPV) 9.3 fL 7.0-9.0 H NEUTROPHIL % (test code = NT%) 69.7 % 56.0-77.0 N IMMATURE GRANULOCYTE % (test code = IG%) 3.9 % 0.0-2.0 H LYMPHOCYTE % (test code = LY%) 11.0 % 14.0-32.0 L MONOCYTE % (test code = MO%) 15.2 % 4.8-9.0 H EOSINOPHIL % (test code = EO%) 0.0 % 0.3-3.7 L BASOPHIL % (test code = BA%) 0.2 % 0.0-2.0 N NUCLEATED RBC % (test code = NRBC%) 0.0 % 0-0 N NEUTROPHIL # (test code = NT#) 6.49 x10 3/uL 2.0-7.6 N IMMATURE GRANULOCYTE # (test code = IG#) 0.36 x10 3/uL 0.00-0.03 H LYMPHOCYTE # (test code = LY#) 1.02 x10 3/uL 1.0-3.8 N MONOCYTE # (test code = MO#) 1.41 x10 3/uL 0.1-0.8 H EOSINOPHIL # (test code = EO#) 0.00 x10 3/uL 0.0-0.2 N BASOPHIL # (test code = BA#) 0.02 x10 3/uL 0.0-0.2 N NUCLEATED RBC # (test code = NRBC#) 0.00 x10 3/uL 0.0-0.1 N MANUAL DIFF REQUIRED (test code = MDIFF) NO FAX:[phone]:[phone]- PULM VENT [id number] 13:30:00 FAX: Дмитрий Abreu MD [phone] [place]: St: REG FAX: Suzanna Shaikh [phone] Name: ABRAN HATCH [facility] : 1945 Age/S: 74/F [address] [place] [address] Unit #: [id number] Loc: [place] [address] Phys: Дмитрий Jon MD Acct: [id number] Dis Date: Status: REG CLI PHONE #: [phone] Exam Date: 12/02/2019 1247 FAX #: [phone] Reason: R06.02, SHORTNESS OF BREATH. EXAMS: CPT CODE: [id number] [facility] [id number] Nuclear lung ventilation/perfusion scan: HISTORY: Short of breath. COMPARISON: Two-view chest x-ray 12/02/2019. FINDINGS: The patient inhaled 10 mCi of xenon-133. Posterior images of lung ventilation were obtained showing normal distribution in each lung on the 1st breath and equilibrium views. No significant air trapping on washout images. Lung perfusion was obtained after injecting pa tient in the right antecubital fossa IV with 5 mCi 99m technetium MAA. Mu ltiple projections of lung perfusion were obtained showing normal perfusio n in each lung without segmental or subsegmental VQ mismatch IMPRESSION: Normal lung scan SL: [id number] at 1 330 Reported and signed by: Jacskon Piper M.D. CC: Дмитрий Jon MD; Suzanna Reddy MD Technologist: CHARLY Macdonald (N)(CT) Trnscrd Date/Time/By: (1330) : By: MeganETG Orig Print D/T: S: 12/02/2019 (6390) PAGE 1 Signed Report B-TYPE NATRIURETIC [id number] 12:55:00* Test Item Value Reference Range Interpretation Comments B-TYPE NATRIURETIC PEPTIDE (test code = BNP) 49.8 PG/ML 0-100 N FAX:[phone]:[phone] METABOLIC [id number] 12:55:00* Test Item Value Reference Range Interpretation Comments SODIUM (test code = NA) 141 mEq/L 134-147 N POTASSIUM (test code = K) 3.6 mEq/L 3.4-5.0 N CHLORIDE (test code = CL) 107 mEq/L 100-108 N CARBON DIOXIDE (test code = CO2) 27 mEq/L 21-33 N ANION GAP (test code = GAP) 11 0-20 N GLUCOSE (test code = GLU) 98 mg/dL 70-110 N BLOOD UREA NITROGEN (test code = BUN) 17 mg/dL 7-18 N GLOMERULAR FILTRATION RATE (test code = GFR) 69.9 70-80 L Units of measure = ml/min/1.73 m2 CREATININE (test code = CREAT) 0.8 mg/dL 0.6-1.3 N TOTAL PROTEIN (test code = PROT) 6.7 g/dL 6.4-8.2 N ALBUMIN (test code = ALB) 3.40 g/dL 3.4-5.0 N CALCIUM (test code = CA) 9.2 mg/dL 8.0-10.5 N BILIRUBIN TOTAL (test code = BILT) 0.3 MG/DL <1.5 N SGOT/AST (test code = AST) 9 IUnit/L 15-37 L SGPT/ALT (test code = ALT) 23 IUnit/L 15-65 N ALKALINE PHOSPHATASE TOTAL (test code = ALKP) 77 IUnit/L 20-125 N THYROID STIMULATING [id number] 12:55:00* Test Item Value Reference Range Interpretation Comments THYROID STIMULATING HORMONE (test code = TSH) 0.92 0.42-5.4 7 N Results in keith- International Units/mL T4 (THYROXINE)2019-12-02 12:52:00* Test Item Value Reference Range Interpretation Comments T4 (THYROXINE) (test code = T4) 8.1 mcg/dL 4.5-12.1 N [id number] 12:45:00* Test Item Value Reference Range Interpretation Comments D-DIMER (test code = DDIMER) 1161 ng/mlFEU <=500 HH THROMBOSIS AND/OR PULMONARY EMBOLISM AND THE CLINICAL CUT- OFF VALUE FOR EXCLUSION (500 ng/mL FEU) OF THESE CONDITIONSIS VALIDATED BY THE C APPLICATION DEVELOPER OF THE METHOD. A NEGATIVE D-DIMER RESULT WHEN COMBINED WITH A CLINICALASSESSMENT OF LOW PRETEST PROBABILITY HAS BEEN SHOWN TO HAVEA HIGH NEGATIVE PREDICTIVE VALUE OF DVT OR PE. D-DIMER VALUES >500 ng/mL FEU ARE NOT DIAGNOSTIC FOR DVT, PEor DIC WITHOUT OTHER CONFIRMATORY TESTS AND APPROPRIATECLINICAL EUALUATIONS. FAX:[phone]:[phone] XR CHEST 2 [id number] 11:50:00 FAX: Дмитрий Abreu MD [phone] [place]: St: [facility] FAX: Suzanna Shaikh [phone] Name: ABRAN HATCH [facility] : 1945 Age/S: 74/F [address] [place] [address] Unit #: [id number] Loc: [place] [address] Phys: Дмитрий Jon MD Acct: [id number] Dis Date: Status: REG CLI PHONE #: [phone] Exam Date: 12/02/2019 1102 FAX #: [phone] Reason: J20.9, ACUTE BRONCHITIS, UNSPECIFIED. EXAMS: CPT CODE: [id number] XR CHEST 2 V 54285 CLINICAL HISTORY: J20.9, ACUTE BRONCHITIS, UNSPECIFIED. COMPARISON: November 24, 2019 chest x-ray as well as computed tomography performed on November 24, 2019. PA and lateral films of the chest demonstrate that heart size is normal. Surgical sutures in left midlung field as well as in left superior mediastinum adjacent to aortic knob are present. On current examination, there is no evidence of pneumonia or congestive failure. Previously noted opacity in left upper lung field sh own to represent pneumonia on computed tomography is not seen on current e xamination. No evidence of pleural effusion or pneumothorax is seen. Regional skeletal structures demonstrate no acute abnormality. IMPRESSION: No evidence of pneumonia or congestive failure is seen. at 1150 Reported and signed by: Alvino Akhtar M.D. CC: Дмитрий Jon MD; Suzanna Reddy MD Technologist: RT Samuel(Zeyad) Trnsher Date/Time/By: 12/02/2019 (1150) : By: MeganYOS Orig Print D/T: S: 12/02/2019 (5099) PAGE 1 Signed Report - CT CHEST W/O [id number] 18:49:00 Name: ABRAN HATCH [facility] : 1945 Age/S: 74 / F [address] [place] [address] Blvd Unit #: [id number] Loc: [place] [address] Phys: IsmaTrevin Acct: [id number] Dis Date: Status: ADM IN PHONE #: [phone] Exam Date: 11/24/2019 1728 FAX #: [phone] Reason: left lung nodule seen on CXR EXAMS: CPT CODE: [id number] CT CHEST W/O CONTRAST [address] without contrast: Multiplanar helical imaging was performed in the chest without IV contrast. CT imaging performed at this location utilizes radiation dose optimization techniques which include one or more of the following: -Automated exposure control -Adjustment of the mA and/or kV according to patient size - Use of iterative reconstruction technique CT Radiation Dose DLP 476 mGy-cm IMPRESSION: Left lung nodule seen on chest x-ray. COMPARISON: Chest x-ray 11/24/2019 FINDINGS: Small nonspecific upper mediastinal lymph nodes. Coronary artery calcification. Normal caliber of the thoracic aorta without an an eurysm. Calcified granuloma in the dome the liver. There are scattered small hypoechoic densities in the liver that probably represent inciden andry cysts the larger measuring 14 mm near the dome. Minimal sc arring or atelectasis in the right costophrenic angle. There are scatte red emphysematous blebs in the lungs. Patchy interstitial infiltrate is found in the upper lobes bilaterally and in the superior segment of the left lower lobe concerning for pneumonia. A more focal area of infiltr ate along the superior aspect of the oblique fissure in the superior seg ment of the left lower lobe probably accounts for the radiographic abnor mality. There is pleural thickening in the left posterior mid chest wit h a 15 mm focal area of pleural thickening. This is inferior to area of interest and not seen on chest radiograph. No other lung nodule or mas s. No pleural effusion Review on bone window shows a mid thoracic degenerative disc disease but no vertebral compression or o ther acute process IMPRESSION: 1. Early pneumonia in the bilateral upper lobes and superior segment left lower lobe. The mor e focal area of consolidation in the superior segment left lower lobe ac counts for the radiographic abnormality. 2. Focal pleural thickening in the posterior left mid chest with a 15 mm pleural-based nodular density that appears to be contiguous with the pleural thickening and likely po stinflammatory. This area of focal pleural thickening should be noted o n a follow-up chest CT recommended by 3 months or sooner after treatment for pneumonia PAGE 1 Signed Report (CONTINUED) Name: ABRAN HATCH [facility] : 1945 Age/S: 74 / F [address] [place] [address] Unit #: [id number] Loc: [place] [address] Ph ys: Trevin Ashby DO Acct: [id number] Dis Date: Status: ADM IN PHONE #: [phone] Exam Date: 11/24/2019 1728 FAX #: [phone] Reason: left lung nodule seen on CXR EXAMS: CPT CODE: [id number] CT CHEST W/O CONTRAST 08905 <Continued> 3. Small cysts in the dome of the liver SL: EG-H at 1849 Reported and signed by: Jackson Piper M.D. CC: Trevin Ashby DO; Suzanna Reddy MD Technologist:Princess Stokes, RT(R)(CT) CTDI: DLP: Trnscb Date/Time: 11/24/2019 (1848) tANEESHG Orig Print D/T: S: 11/24/2019 (1851) PAGE 2 Signed Report LACTIC [id number] 15:24:00* Test Item Value Reference Range Interpretation Comments LACTIC ACID (test code = LACT) 1.3 mmol/L 0.4-1.9 N BASIC METABOLIC [id number] 15:24:00* Test Item Value Reference Range Interpretation Comments SODIUM (test code = NA) 137 mEq/L 134-147 N POTASSIUM (test code = K) 3.8 mEq/L 3.4-5.0 N CHLORIDE (test code = CL) 105 mEq/L 100-108 N CARBON DIOXIDE (test code = CO2) 26 mEq/L 21-33 N ANION GAP (test code = GAP) 10 0-20 N GLUCOSE (test code = GLU) 115 mg/dL 70-110 H BLOOD UREA NITROGEN (test code = BUN) 7 mg/dL 7-18 N GLOMERULAR FILTRATION RATE (test code = GFR) 97.5 70-80 H Units of measure = ml/min/1.73 m2 CREATININE (test code = CREAT) 0.6 mg/dL 0.6-1.3 N CALCIUM (test code = CA) 9.2 mg/dL 8.0-10.5 N HEPATIC FUNCTION [id number] 15:24:00* Test Item Value Reference Range Interpretation Comments TOTAL PROTEIN (test code = PROT) 6.8 g/dL 6.4-8.2 N ALBUMIN (test code = ALB) 3.20 g/dL 3.4-5.0 L BILIRUBIN TOTAL (test code = BILT) 0.4 MG/DL <1.5 N BILIRUBIN DIRECT (test code = BILD) 0.10 MG/DL 0.0-0.30 N BILIRUBIN INDIRECT (test code = BILIND) 0.30 MG/DL SGOT/AST (test code = AST) 18 IUnit/L 15-37 N SGPT/ALT (test code = ALT) 16 IUnit/L 15-65 N ALKALINE PHOSPHATASE TOTAL (test code = ALKP) 63 IUnit/L 20-125 N UA RFLX MICR CULT IF [id number] 15:19:00* Test Item Value Reference Range Interpretation Comments UA COLOR (test code = COLU) STEVIE YEL/STRAW A UA APPEARANCE (test code = APPU) CLOUDY CLEAR A UA GLUCOSE DIPSTICK (test code = DGLUU) NEGATIVE NEGATIVE UA BILIRUBIN DIPSTICK (test code = BILU) NEGATIVE NEGATIVE UA KETONE DIPSTICK (test code = KETU) TRACE NEGATIVE A UA SPECIFIC GRAVITY (test code = SGU) 1.020 1.005-1.030 N UA BLOOD DIPSTICK (test code = DEANNE) NEGATIVE NEGATIVE UA PH DIPSTICK (test code = EMIL) 6.0 5.0-7.0 N UA PROTEIN DIPSTICK (test code = PROU) 1+ NEGATIVE A UA UROBILINIOGEN DIPSTICK (test code = URO) 4.0 mg/dL 0.2-1.0 A UA NITRITE DIPSTICK (test code = ANITHA) NEGATIVE NEGATIVE UA LEUKOCYTE ESTERASE DIPSTICK (test code = LEUU) 1+ NEGA TIVE A UA WBC (test code = WBCU) 4-9 WBC/HPF 0-3 A UA RBC (test code = RBCU) 0-3 RBC/HPF 0-3 UA WBC NO REFLEX (test code = WBCUCL) 4-9 WBC/HPF 0-3 A UA BACTERIA (test code = BACU) TRACE /HPF NONE SEEN UA SQUAMOUS CELLS (test code = SQU) 36-50 /HPF NONE SEEN A UA MUCUS (test code = MUCU) 4+ /LPF NONE SEEN A Indication for culture: Sev. Sepsis-no other src Dysuria/FrequencySpecim en Description: CLEAN CATCHBASIC METABOLIC [id number] 15:01:00* Test Item Value Reference Range Interpretation Comments SODIUM (test code = NA) 137 mEq/L 134-147 N POTASSIUM (test code = K) 3.8 mEq/L 3.4-5.0 N CHLORIDE (test code = CL) 105 mEq/L 100-108 N CARBON DIOXIDE (test code = CO2) 26 mEq/L 21-33 N ANION GAP (test code = GAP) 10 0-20 N GLUCOSE (test code = GLU) 115 mg/dL 70-110 H BLOOD UREA NITROGEN (test code = BUN) 7 mg/dL 7-18 N GLOMERULAR FILTRATION RATE (test code = GFR) 70-80 CREATININE (test code = CREAT) mg/dL 0.6-1.3 CALCIUM (test code = CA) 9.2 mg/dL 8.0-10.5 N HEPATIC FUNCTION [id number] 15:01:00* Test Item Value Reference Range Interpretation Comments TOTAL PROTEIN (test code = PROT) g/dL 6.4-8.2 ALBUMIN (test code = ALB) g/dL 3.4-5.0 BILIRUBIN TOTAL (test code = BILT) MG/DL <1.5 BILIRUBIN DIRECT (test code = BILD) MG/DL 0.0-0.30 SGOT/AST (test code = AST) IUnit/L 15-37 SGPT/ALT (test code = ALT) IUnit/L 15-65 ALKALINE PHOSPHATASE TOTAL (test code = ALKP) IUnit/L 20-125 CBC W/AUTO [id number] 14:46:00* Test Item Value Reference Range Interpretation Comments WHITE BLOOD CELL (test code = WBC) 4.95 x10 3/uL 4.5-11.0 N RED BLOOD CELL (test code = RBC) 3.94 x10 6/uL 3.54-5.02 N HEMOGLOBIN (test code = HGB) 11.7 g/dL 11.0-15.0 N HEMATOCRIT (test code = HCT) 36.3 % 33.0-45.0 N MEAN CELL VOLUME (test code = MCV) 92.1 fL 81.0-99.0 N MEAN CELL HGB (test code = MCH) 29.7 pg 27.0-33.0 N MEAN CELL HGB CONCETRATION (test code = MCHC) 32.2 g/dL 33.0-37. 0 L RED CELL DISTRIBUTION WIDTH CV (test code = RDW) 12.1 % 11.5- 14.5 N RED CELL DISTRIBUTION WIDTH SD (test code = RDW-SD) 41.0 fL 37 .0-54.0 N PLATELET COUNT (test code = PLT) 260 x10 3/uL 150-400 N MEAN PLATELET VOLUME (test code = MPV) 9.4 fL 7.0-9.0 H NEUTROPHIL % (test code = NT%) 51.0 % 56.0-77.0 L IMMATURE GRANULOCYTE % (test code = IG%) 0.2 % 0.0-2.0 N LYMPHOCYTE % (test code = LY%) 23.0 % 14.0-32.0 N MONOCYTE % (test code = MO%) 14.9 % 4.8-9.0 H EOSINOPHIL % (test code = EO%) 9.9 % 0.3-3.7 H BASOPHIL % (test code = BA%) 1.0 % 0.0-2.0 N NUCLEATED RBC % (test code = NRBC%) 0.0 % 0-0 N NEUTROPHIL # (test code = NT#) 2.52 x10 3/uL 2.0-7.6 N IMMATURE GRANULOCYTE # (test code = IG#) 0.01 x10 3/uL 0.00-0.03 N LYMPHOCYTE # (test code = LY#) 1.14 x10 3/uL 1.0-3.8 N MONOCYTE # (test code = MO#) 0.74 x10 3/uL 0.1-0.8 N EOSINOPHIL # (test code = EO#) 0.49 x10 3/uL 0.0-0.2 H BASOPHIL # (test code = BA#) 0.05 x10 3/uL 0.0-0.2 N NUCLEATED RBC # (test code = NRBC#) 0.00 x10 3/uL 0.0-0.1 N MANUAL DIFF REQUIRED (test code = MDIFF) NO - XR CHEST 1 [id number] 14:17:00 FAX: Trevin Howell DO [phone] [place]: St: PRE Name: ABRAN CAMPOS [facility] : [birth year] Age/S: 74/F [address] [place] [address] Unit #: [id number] Loc: [address] [place] [address] Phys: Trevin Ashby DO Acct: [id number] Dis Date: Status: PRE ER PHONE #: [phone] Exam Date: 11/24/2019 1414 FAX #: [phone] Reason: asthma EXAMS: CPT CODE: [id number] XR CHEST 1 V [address]2110 CLINICAL HISTORY:asthma COMPARISON:May 01, 2018 Frontal film of the chest performed at 1359 on November 24, 2019 demonstrates monitor leads in place. Heart size is normal. Lung blackburn demonstrate no evidence of pneumonia or congestive failure. Linear opacity is present in the left midlung f ield compatible with atelectatic plaque and/or parenchymal scar. A possible nodular appearing opacity is seen in left upper lobe. Fur ther evaluation by means of computed tomography is recommended. IMPRESSION: 1. No evidence of pneumonia or congestive failure. 2. Possible nodular opacity in left upper lobe. Computed tomography is recommended for further evaluation. 3. Parenchymal scarring or atelect asis in left midlung field. at 1417 Reported and signed by: Alvino vanessa M.D. CC: Trevin Ashby DO Technologist: Noris Gregg RT(R); Emelia Schwartz RT(R) Tr [facility] Date/Time/By: 11/24/2019 (3478) : By: Mariia Orig Print D/T: S: 11/24/2019 (2698) PAGE 1 Adele martinez Report Bacteria identified in Urine by Culture 2019-06-20 00:00:00* Test Item Value Reference Range Interpretation Comments culture, urine, routine (test code = culture, urine, routine) see ramone [facility] PracticeUrinalysis macro (dipstick) panel - [id number] 14:59:00* Test Item Value Reference Range Interpretation Comments Color Color (test code = Color Color) yellow Color Appearance (test code = Color Appearance) clear Color Glucose (test code = Color Glucose) negative Color Bilirubin (test code = Color Bilirubin) negative Color Ketones (test code = Color Ketones) negative Color Specific [place] (test code = Color Specific [place]) 1.010 Color Blood (test code = Color Blood) moderate Color PH (test code = Color PH) 6.5 Color Protein (test code = Color Protein) negative Color Urobilinogen (test code = Color Urobilinogen) 0.2 Color Nitrites (test code = Color Nitrites) negative Color Leukocytes (test code = Color Leukocytes) [facility]- XR FLUORO FOR SPINE [id number] 11:12:00 Patient Name: ABRAN HATCH Unit No: [id number] EXAMS: CPT CODE: [id number] XR FLUORO FOR SPINE INJ 06786 LUMBAR TRANSFORAMINAL INJECTION REFERRING PHYSICIAN: PREOPERATIVE DIAGNO SIS: Degenerative Lumbar Disc Disease. POSTOPERATIVE DIAGNOSIS: Penny mbar radiculopathy PROCEDURES PERFORMED 1. Fluoroscopically guided needle localization of the bilateral L4, bilateral L5, bilateral S1 spinal nerve/nerves with transforaminal epidural steroid injection/inje ctions. 2. Transforaminal epidurogram/epidurograms at bilateral L4, bilateral L5, bilateral S1. FINDINGS: Poor filling all. Concordant provocation bilateral L5 hips. Pain relief-100%. ANTIBIOTIC: Cefazolin ESTIMATED BLOOD LOSS: Minimal ANESTHESIA: (TIVA )Total intravenous anesthetic (patient intolerant to s edatives and hypnotics) COMPLICATIONS: None DETAILS OF PROCEDURE: After obtaining stable vital signs, informed consent and IV access, with no known contraindications to proceeding, the patient was see en to the fluoroscopy suite and placed in a prone position with all extrem ities padded and appropriate monitors placed. A sterile prep and drape was performed over the lumbosacral spine. Using fluoroscopic visualiz ation at each level the insertion site was marked for a paravertebral appr oach to the foramen. Using standard technique, a 25 gauge needle was advan rosie to the base of the pedicle. In AP view, final positioning was obtained outside the 6 on the clock position on the pedicle. Then, 1 ml of Isovue- 300 contrast was injected to produce the epidurograms. No paresthesias wer e elicited with needle insertion or injection and there were no signs of intravascular or intrathecal uptake. Then, with 1 ml of 4% lidocaine and 10 mg of triamcinolone was injected incrementally with frequent nega tive aspirations. There were no signs of intravascular or intrathecal upta ke. Each subsequent level was done using the same technique and medication s. The patient's vital signs remained stable. The patient was taken to the PACU in good condition. at 1112 Reported and signed by: Lauro Arizmendi M.D. [facility] Pain NAME: ABRAN HATCH [address] [place] [address] PHYS: Lauro Castro MD [place], [place] [address] : 1945 AGE: 73 SEX: F LOC: [place] PHONE #: [phone] EXAM DATE: 04/09/2019 STATUS: REG [facility] [place] FAX #: [phone] RAD #: D/C DT PAGE 1 Signed Report (CONTINUED) Patient Name: ABRAN HATCH Unit No: [id number] EXAMS: CPT CODE: [id number] XR FLUORO FOR SPINE INJ 48332 <Continued> CC: Lauro Arizmendi MD Technologist: NICK COLIN RT(R) Transcribed D/ (1112) Kathy [facility] Ortho Pain NAME: ABRAN HATCH [address] [place] [address] PHYS: Lauro Castro MD [place] [address] : 1945 AGE: 73 SEX: F LOC: [place] PHONE #: [phone] EXAM DATE: 04/09/2019 STATUS: REG [facility] [place] FAX #: [phone] RAD #: D/C DT PAGE 2 Signed Report Patient Name: ABRAN HATCH Unit No: [id number] EXAMS: CPT CODE: [id number] XR FLUORO FOR SPINE INJ 90921 <Continued> Orig Print D/T: S: 04/09/2019 (1115) [facility] NAME: ABRAN HATCH [address] PHYS: Lauro Castro MD [place], [place] [address] : 1945 AGE: 73 SEX: F LOC: [place] PHONE #: [phone] EXAM DATE: 04/09/2019 STATUS: REG [facility] [place] FAX #: [phone] RAD #: D/C DT PAGE 3 Signed Report HIP RIGHT 2-3 VW (+/- PELVIS)2019-02-18 06:21:[address], [place] [address] Patient Name: ABRAN HATCH MR #: [id number] : 1945 Age/Sex: 73/F Req #: [id number] Adm Physician: Ordered by: CYDNEY GAMA MD Report #: [id number] Location: ER Room/Bed: Procedure: 051 DX/HIP RIGHT 2-3 VW (+/- PELVIS) Exam Date: Exam Time: REPORT STATUS: Signed Exam: AP pelvis and right hip History: Pain Comparison: None. Findings: No fracture or malalignment. Joint spaces preserved. No abnormal s oft tissue calcification or soft tissue defect. Impression: No acu te osseous abnormality Signed by: Dr. Tab Lee M.D. on 02/18/2019 6:22 AM Dictated By: TAB LEE MD 1 Transcribed By: MARY on 02/18/19621 COPY TO: CYDNEY GAMA MD BREAST ULTRASOUND [id number] 10:24:25 - DIAG MAMM BILATERAL AJ CAD DIGITALBILATERAL DIGITAL DIAGNOSTIC MAMMOGRAM 3D/2D WITH CAD: 12/17/2018CLINICAL: Previous breast cancer. Digital breast tomosynthesis was performed in addition to routine CC and MLO views. Current mammographic images were evaluated by either a BrandProject M-Vu or a Fingerprint ImageChecker CAD (computer aided detection system). Comparison is made to exams dated 06/04/2018 mammogram, 12/05/2017 mammogram, and 07/13/2017 mammogram - [facility] There are scattered fibroglandular tissues in both [...] 12/05/2017 mammogram, [facility] Real-time ultrasound of both breasts and both axilla was performed. No abnormalities were seen sonographically in either breast or either axilla. Clinical breast exam was unremarkable.IMPRESSION: NEGATIVE There is no sonographic evidence of malignancy. Patient has been informed that she should have a screening mammogram and supplemental ultrasound in 1 year.Deandra Ramirez M.D. dm/:12/18/2018 10:24:25 Autobody Technician: Yazmin Torres , [facility]-letter sent: BIRADS 1-2 Combo FU Letter Mammogram BI-RADS: 0 Indeterminate Ultrasound BI-RADS: 1 NegativeDIAG MAMM BILATERAL AJ CAD [id number] 10:24:25 - DIAG MAMM BILATERAL AJ CAD DIGITALBILATERAL DIGITAL DIAGNOSTIC MAMMOGRAM 3D/2D WITH CAD: 12/17/2018CLINICAL: Previous breast cancer. Digital breast tomosynthesis was performed in addition to routine CC and MLO views. Current mammographic images were evaluated by either a BrandProject M-Vu or a Fingerprint ImageChecker CAD (computer aided detection system). Comparison is made to exams dated 06/04/2018 mammogram, 12/05/2017 mammogram, and [facility]. There are scattered fibroglandular tissues in both breasts. There are post operative findings in the left breast. No suspicious mass, architectural distortion, malignant type calcification, or lymph node abnormality detected. INCOMPLETE ASSESSMENT: ADDITIONAL IMAGING EVALUATION RECOMMENDEDUltrasound pending for additional evaluation. Resume annual screening mammography in one year. - BREAST ULTRASOUND BILATERALULTRASOUND OF BOTH BREASTS AND BOTH AXILLA: 12/17/2018 Comparison is made to exams dated 06/04/2018 mammogram, 12/05/2017 mammogram, and 07/13/2017 mammogram - [facility]. Real-time ultrasound of both breasts and both axilla was performed. No abnormalities were seen sonographica lly in either breast or either axilla. Clinical breast exam was unremarkable.IM PRESSION: NEGATIVE There is no sonographic evidence of malignancy. Patient watson s been informed that she should have a screening mammogram and supplemental ultr asound in 1 year.Deandra Ramirez M.D. dm/:12/18/2018 10:24:25 Imaging Alfie hnologist: Yazmin Torres FW, [facility]FW[facility] sent: BIRADS 1-2 Combo FU Letter Mammogram BI-RADS: 0 Indeterminate Ultrasound BI-RADS: 1 Nega tiveMRI ABDOMEN [id number] 15:21:00 [place] [address] Patient Name: ABRAN HATCH MR #: [id number] : 1945 Age/Sex: 72/F Req #: [id number] Adm Physician: Ordered by: HARI MORLEY MD Report #: [id number] Location: ER Room/Bed: Procedure: [id number] MRI/MRI ABDOMEN WO Exam Date: Exam Time: REPORT STATUS: Signed EXA M: MR Abdomen WITHOUT Contrast INDICATION: COMPARISON: Same day CT TECHNIQUE: Multiplanar and multisequence imaging was performed of the abdo men without contrast. Exam aborted prior to completion secondary to patient request. In and out of phase, DWI/ADC, axial T2 FRFSE, coronal SSFSE, coronal 2D FIESTA FS were obtained. IV Contrast: None Oral Contrast: No ne Medications: None COMPLICATIONS: None FINDINGS: Motion artifacts, aortic pulsation artifacts, lack of IV contrast, and incom plete exam limits evaluation. LOWER THORAX: Previously noted left lower lob e groundglass opacities are better seen on the prior CT.. HEPATOBILIARY : Multiple T2 hyperintense lesions in the liver measuring up to 1.9 cm in the left hepatic lobe and 1.7 cm in the right hepatic lobe. Motion artifacts limit evaluation on opposed phase images. No biliary ductal dilation. GALLBLA DDER: No stones or sludge. No wall thickening. SPLEEN: No splenomegaly. PANCREAS: No focal masses or ductal dilatation. ADRENALS: No adrenal nodules KIDNEYS/URETERS: No hydronephrosis. T2 hyperintense 0.7 centim eter lesion in the left inferior renal pole. GI TRACT: No abnormal dist ention, wall thickening, or evidence of bowel obstruction. LYMPH NODES: N o lymphadenopathy. VESSELS: Limited evaluation. PERITONEUM / RETROPERI TONEUM: No free fluid. BONES: No suspicious marrow signal abnormalities. SOFT TISSUES: Unremarkable. IMPRESSION: 1. Limited evaluat ion as exam was aborted prior to completion per patient request. 2. Previou sly noted lesions in the liver appear T2 hyperintense which could indicate cys ts but are otherwise incompletely evaluated. Consider contrast-enhanced CT or ultrasound for further evaluation. Signed by: DR. Harsha Dempsey MD o n 06/08/2018 3:30 PM Dictated By: HARSHA DEMPSEY MD 1530 Transcribed By: MARY on 06/08/18 1530 COPY TO: HARI MORLEY MD CT ABDOMEN/PELVIS [id number] 12:13:00 [place] [address] Patient Name: ABRAN HATCH MR #: [id number] : 1945 Age/Sex: 72/F Req #: [id number] Adm Physician: Ordered by: HARI MORLEY MD Report #: [id number] Location: ER Room/Bed: Procedure: [id number] CT/CT ABDOMEN/PELVIS WO Exam Date: 06/08/18 Exam Time: 1130 REPORT STAT US: Signed EXAM: CT Abdomen and Pelvis WITHOUT contrast INDICATION: COMPARISON: None. TECHNIQUE: Abdomen and pelvis were scanned utilizing a mult [employer] helical scanner from the lung base to the pubic symphysis without ad ministration of IV contrast. Absence of intravenous contrast decreases sensiti vity for detection of focal lesions and vascular pathology. Coronal and sagitt al reformations were obtained. Routine protocol was performed. IV CONTRAST: None. ORAL CONTRAST: Water RADIATION DO SE: Total DLP: 698.2 mGy*cm Estimated effective dose: (DLP x 0.01 5 x size factor) mSv COMPLICATIONS: None FINDINGS: LINES an d TUBES: None. LOWER THORAX: A ground glass nodular opacity is present in the left lower lobe, partially seen. HEPATOBILIARY: Two calcified foci ar e noted in the liver, reflective of prior granulomatous disease. Multiple subc entimeter foci are present in the liver, too small to characterize, but likely cysts. There is a 1.2 cm lesion in the left hepatic lobe (18 HU). No biliary ductal dilation. GALLBLADDER: No radio-opaque stones or sludge. No wall thickening. SPLEEN: No splenomegaly. PANCREAS: No focal masses or ousmane andry dilatation. ADRENALS: No adrenal nodules KIDNEYS/URETERS: N o hydronephrosis. No cystic or solid mass lesions. No stones. GI TRACT: No abnormal distention, wall thickening, or evidence of bowel obstruction. Th ere are diverticula within the colon without evidence of diverticulitis. Appe ndix is normal. PELVIC ORGANS/BLADDER: Unremarkable. LYMPH NODES: No l ymphadenopathy. VESSELS: There is moderate atherosclerotic disease in the a adela and major arterial branches. PERITONEUM / RETROPERITONEUM: No free a ir or fluid. BONES: Unremarkable. SOFT TISSUES: Unremarkable. IMPRESSION: No acute abnormality in the abdomen or pelvis. Normal ap pendix. Sigmoid diverticulosis without CT evidence of diverticulitis. A 1 .2 cm indeterminate left hepatic lobe lesion. If there is clinical suspicion f or malignancy, correlation with prior imaging or an MRI with contrast may be c onsidered for evaluation. Groundglass nodular opacity in the left lower lo be, which may be infectious or inflammatory. Per clinical history, the patient has a history of breast cancer and prior resection of left lower lung. Correl ation with outside imaging or follow-up chest CT per protocol is recommended. Multiple subcentimeter hepatic lesions, to small to characterize, but like ly represent cysts. Signed by: Dr. Timothy Carvalho MD on 06/08/2018 12:34 PM Dictated By: TIMOTHY CARVALHO MD 1234 COPY TO: BOOKER MORLEY MD Sodium Zbheu9962-71-79 10:10:00* Test Item Value Reference Range Interpretation Comments Sodium Level (test code = 2951-2) 136 136-145 [facility]woodPotassium Hwkdq2354-91-43 10:10:00* Test Item Value Reference Range Interpretation Comments Potassium Level (test code = 2823-3) 4.0 3.5-5.1 [facility]woodChloride Rpsxc5550-55-16 10:10:00* Test Item Value Reference Range Interpretation Comments Chloride Level (test code = 2075-0) 99 98-107 [facility] KingwoodCarbon Dioxide Bafkj7153-41-38 10:10:00* Test Item Value Reference Range Interpretation Comments Carbon Dioxide Level (test code = 2028-9) 25 22-29 [facility] KingwoodAnion Laa4717-59-74 10:10:00* Test Item Value Reference Range Interpretation Comments Anion Gap (test code = 39811-2) 16.0 8-16 [facility]woodBlood Urea Wpjraquc6318-15-87 10:10:00* Test Item Value Reference Range Interpretation Comments Blood Urea Nitrogen (test code = 3094-0) 20 7-26 [facility]woodCreatinine2018-08-31 10:10:00* Test Item Value Reference Range Interpretation Comments Creatinine (test code = 2160-0) 0.79 0.57-1.11 [facility]woodBUN/Creatinine Jzeiw2528-16-56 10:10:00* Test Item Value Reference Range Interpretation Comments BUN/Creatinine Ratio (test code = 3097-3) 25 6-25 [facility] KingwoodEstimat Glomerular Filtration Rate 2018-06-08 10:10:00* Test Item Value Reference Range Interpretation Comments Estimat Glomerular Filtration Rate (test code = 36377-8) 60- >60 Ranges were taken from the National Kidney Disease Education Program and the [facility] literature.Reference ranges:60 or greater: [id number] ( for 3 consecutive months): Chronic kidney disease 15 or less: Kidney failureMemorial Hermann Surgical Hospital KingwoodGlucose Xtpae3754-14-21 10:10:00* Test Item Value Reference Range Interpretation Comments Glucose Level (test code = MLO8706) 120 74-118 H [facility] KingwoodCalcium Wbzmt5963-51-31 10:10:00* Test Item Value Reference Range Interpretation Comments Calcium Level (test code = 56267-4) 9.8 8.4-10.2 [facility] KingwoodTotal Chgxafaxz1058-93-20 10:10:00* Test Item Value Reference Range Interpretation Comments Total Bilirubin (test code = 1975-2) 1.0 0.2-1.2 [facility] KingwoodAspartate Amino Transf (AST/SGOT) 2018-06-08 10:10:00* Test Item Value Reference Range Interpretation Comments Aspartate Amino Transf (AST/SGOT) (test code = Aspartate Amino Transf (AST/SGOT)) 16 5-34 [facility] KingwoodAlanine Aminotransferase (ALT/SGPT) 2018-06-08 10:10:00* Test Item Value Reference Range Interpretation Comments Alanine Aminotransferase (ALT/SGPT) (test code = 1742-6) 19 0-55 [facility] KingwoodTotal Swqrmga2341-79-56 10:10:00* Test Item Value Reference Range Interpretation Comments Total Protein (test code = 2885-2) 6.7 6.5-8.1 [facility] KingwoodAlbumin2018-08-31 10:10:00* Test Item Value Reference Range Interpretation Comments Albumin (test code = 1751-7) 3.3 3.5-5.0 L [facility] KingwoodGlobulin2018-08-31 10:10:00* Test Item Value Reference Range Interpretation Comments Globulin (test code = 13813-4) 3.4 2.3-3.5 [facility] KingwoodAlbumin/Globulin Ogcxe0336-99-95 10:10:00 * Test Item Value Reference Range Interpretation Comments Albumin/Globulin Ratio (test code = 1759-0) 1.0 0.8-2.0 [facility] KingwoodAlkaline Ogwvffxgwbz2654-34-15 10:10:00* Test Item Value Reference Range Interpretation Comments Alkaline Phosphatase (test code = 6768-6) 58 40-150 [facility] Zbxdr8117-51-15 10:10:00* Test Item Value Reference Range Interpretation Comments Sodium Level (test code = 2951-2) 136 136-145 [facility]woodPotassium Vdfas6486-89-52 10:10:00* Test Item Value Reference Range Interpretation Comments Potassium Level (test code = 2823-3) 4.0 3.5-5.1 [facility] KingwoodChloride Hswnh9473-04-71 10:10:00* Test Item Value Reference Range Interpretation Comments Chloride Level (test code = 2075-0) 99 98-107 [facility] KingwoodCarbon Dioxide Wjabw3845-17-79 10:10:00* Test Item Value Reference Range Interpretation Comments Carbon Dioxide Level (test code = 2028-9) 25 22-29 [facility] KingwoodAnion Vjp5710-47-74 10:10:00* Test Item Value Reference Range Interpretation Comments Anion Gap (test code = 88316-5) 16.0 8-16 [facility] KingwoodBlood Urea Ogffkyfc1902-21-86 10:10:00* Test Item Value Reference Range Interpretation Comments Blood Urea Nitrogen (test code = 3094-0) 20 7-26 [facility] KingwoodCreatinine2018-08-31 10:10:00* Test Item Value Reference Range Interpretation Comments Creatinine (test code = 2160-0) 0.79 0.57-1.11 [facility]woodBUN/Creatinine Wouxp2844-94-47 10:10:00* Test Item Value Reference Range Interpretation Comments BUN/Creatinine Ratio (test code = 3097-3) 25 6-25 [facility] KingwoodEstimat Glomerular Filtration Rate 2018-06-08 10:10:00* Test Item Value Reference Range Interpretation Comments Estimat Glomerular Filtration Rate (test code = [id number]) > 60 >60 Ranges were taken from the National Kidney Disease Education Program and the [facility] Foundation literature.Reference ranges:60 or greater: Sccxrw55-96 ( for 3 consecutive months): Chronic kidney disease 15 or less: Kidney failureMemorial Hermann Surgical Hospital KingwoodGlucose Sehyx6182-65-03 10:10:00* Test Item Value Reference Range Interpretation Comments Glucose Level (test code = LZT0667) 120 74-118 H [facility] KingwoodCalcium Buhwj8705-09-97 10:10:00* Test Item Value Reference Range Interpretation Comments Calcium Level (test code = 96915-3) 9.8 8.4-10.2 [facility] KingwoodTotal Cgtiinmca6198-52-65 10:10:00* Test Item Value Reference Range Interpretation Comments Total Bilirubin (test code = 1975-2) 1.0 0.2-1.2 [facility] KingwoodAspartate Amino Transf (AST/SGOT) 2018-06-08 10:10:00* Test Item Value Reference Range Interpretation Comments Aspartate Amino Transf (AST/SGOT) (test code = Aspartate Amino Transf (AST/SGOT)) 16 5-34 [facility] KingwoodAlanine Aminotransferase (ALT/SGPT) 2018-06-08 10:10:00* Test Item Value Reference Range Interpretation Comments Alanine Aminotransferase (ALT/SGPT) (test code = 1742-6) 19 0-55 [facility] KingwoodTotal Olgutrl7846-04-45 10:10:00* Test Item Value Reference Range Interpretation Comments Total Protein (test code = 2885-2) 6.7 6.5-8.1 [facility] KingwoodAlbumin2018-08-31 10:10:00* Test Item Value Reference Range Interpretation Comments Albumin (test code = 1751-7) 3.3 3.5-5.0 L [facility] KingwoodGlobulin2018-08-31 10:10:00* Test Item Value Reference Range Interpretation Comments Globulin (test code = 81569-2) 3.4 2.3-3.5 [facility] KingwoodAlbumin/Globulin Wtkqd9861-83-73 10:10:00 * Test Item Value Reference Range Interpretation Comments Albumin/Globulin Ratio (test code = 1759-0) 1.0 0.8-2.0 [facility] KingwoodAlkaline Mefzjulklrx5364-96-83 10:10:00* Test Item Value Reference Range Interpretation Comments Alkaline Phosphatase (test code = 6768-6) 58 40-150 [facility] KingwoodUrine BPN5749-28-56 10:07:00* Test Item Value Reference Range Interpretation Comments Urine WBC (test code = 5821-4) 11-20 0-5 H [facility] KingwoodUrine NHI2503-18-80 10:07:00* Test Item Value Reference Range Interpretation Comments Urine RBC (test code = 84842-6) 6-10 0-5 H [facility] KingwoodUrine Pqnherds9916-87-42 10:07:00* Test Item Value Reference Range Interpretation Comments Urine Bacteria (test code = 18481-5) MODERATE NONE H [facility] KingwoodUrine Epithelial Qqdwu4160-40-30 10:07:00 * Test Item Value Reference Range Interpretation Comments Urine Epithelial Cells (test code = 75323-6) MODERATE NONE [facility] KingwoodUrine FPV1433-60-27 10:07:00* Test Item Value Reference Range Interpretation Comments Urine WBC (test code = 5821-4) 11-20 0-5 H [facility] KingwoodUrine GOC7633-74-35 10:07:00* Test Item Value Reference Range Interpretation Comments Urine RBC (test code = 59875-2) 6-10 0-5 H [facility] KingwoodUrine Gznscrzi6762-19-41 10:07:00* Test Item Value Reference Range Interpretation Comments Urine Bacteria (test code = 97740-8) MODERATE NONE H [facility] KingwoodUrine Epithelial Ygxkf3960-92-55 10:07:00 * Test Item Value Reference Range Interpretation Comments Urine Epithelial Cells (test code = 41513-7) MODERATE NONE [facility] KingwoodUrine Pilwu5677-00-14 09:58:00* Test Item Value Reference Range Interpretation Comments Urine Color (test code = 5778-6) STEVIE YELLOW H [facility] KingwoodUrine Schmdgl2721-88-19 09:58:00* Test Item Value Reference Range Interpretation Comments Urine Clarity (test code = 74060-3) SL CLOUDY CLEAR [facility] KingwoodUrine Specific Xweshhx8274-19-63 09:58:00 * Test Item Value Reference Range Interpretation Comments Urine Specific [place] (test code = 5811-5) 1.015 1.010-1.02 5 [facility] KingwoodUrine sP5049-05-61 09:58:00* Test Item Value Reference Range Interpretation Comments Urine pH (test code = 17971-6) 6 5-7 [facility]woodUrine Leukocyte Mudzegbz8711-05-16 09:58:00* Test Item Value Reference Range Interpretation Comments Urine Leukocyte Esterase (test code = 5799-2) TRACE NEGATIVE H [facility] KingwoodUrine Vyntrky1747-03-52 09:58:00* Test Item Value Reference Range Interpretation Comments Urine Nitrite (test code = 12904-5) NEGATIVE NEGATIVE [facility] KingwoodUrine Msmrfyy2256-04-82 09:58:00* Test Item Value Reference Range Interpretation Comments Urine Protein (test code = 5804-0) 1+ NEGATIVE H [facility] KingwoodUrine Glucose (UA)2018-06-08 09:58:00* Test Item Value Reference Range Interpretation Comments Urine Glucose (UA) (test code = 2349-9) NEGATIVE NEGATIVE [facility] KingwoodUrine Vjccmxf0069-76-27 09:58:00* Test Item Value Reference Range Interpretation Comments Urine Ketones (test code = 90437-3) NEGATIVE NEGATIVE [facility] KingwoodUrine Kydmfbumqtcm8002-51-94 09:58:00* Test Item Value Reference Range Interpretation Comments Urine Urobilinogen (test code = 20359-8) 4 0.2-1 H [facility] KingwoodUrine Jqsoowoiy9390-20-91 09:58:00* Test Item Value Reference Range Interpretation Comments Urine Bilirubin (test code = 1978-6) 2+ NEGATIVE H [facility] KingwoodUrine Dhhle2002-01-32 09:58:00* Test Item Value Reference Range Interpretation Comments Urine Blood (test code = 08856-7) NEGATIVE NEGATIVE [facility] KingwoodUrine Pawjt1654-70-38 09:58:00* Test Item Value Reference Range Interpretation Comments Urine Color (test code = 5778-6) STEVIE YELLOW H [facility] KingwoodUrine Ictjpsj8514-71-87 09:58:00* Test Item Value Reference Range Interpretation Comments Urine Clarity (test code = 58977-9) SL CLOUDY CLEAR [facility] KingwoodUrine Specific Oocdqxk7539-40-95 09:58:00 * Test Item Value Reference Range Interpretation Comments Urine Specific [place] (test code = 5811-5) 1.015 1.010-1.02 5 [facility]woodUrine jY2347-46-91 09:58:00* Test Item Value Reference Range Interpretation Comments Urine pH (test code = 79595-9) 6 5-7 [facility]woodUrine Leukocyte Yenyyumk3388-83-42 09:58:00* Test Item Value Reference Range Interpretation Comments Urine Leukocyte Esterase (test code = 5799-2) TRACE NEGATIVE [facility] Ssaotwm1543-84-95 09:58:00* Test Item Value Reference Range Interpretation Comments Urine Nitrite (test code = 02877-5) NEGATIVE NEGATIVE [facility]woodUrine Inxptqi5200-32-02 09:58:00* Test Item Value Reference Range Interpretation Comments Urine Protein (test code = 5804-0) 1+ NEGATIVE H [facility]woodUrine Glucose (UA)2018-06-08 09:58:00* Test Item Value Reference Range Interpretation Comments Urine Glucose (UA) (test code = 2349-9) NEGATIVE NEGATIVE [facility]woodUrine Xzecrfe5222-63-17 09:58:00* Test Item Value Reference Range Interpretation Comments Urine Ketones (test code = 72762-8) NEGATIVE NEGATIVE [facility] KingwoodUrine Rpndxtegaipv8937-13-93 09:58:00* Test Item Value Reference Range Interpretation Comments Urine Urobilinogen (test code = 24368-3) 4 0.2-1 H [facility]woodUrine Uvsdowuxf6094-20-29 09:58:00* Test Item Value Reference Range Interpretation Comments Urine Bilirubin (test code = 1978-6) 2+ NEGATIVE H [facility] KingwoodUrine Ujowf4154-79-34 09:58:00* Test Item Value Reference Range Interpretation Comments Urine Blood (test code = 74783-0) NEGATIVE NEGATIVE [facility] KingwoodWhite Blood Dbbxa2810-79-58 09:51:00* Test Item Value Reference Range Interpretation Comments White Blood Count (test code = 6690-2) 5.69 4.8-10.8 [facility] KingwoodRed Blood Djmsc4143-94-32 09:51:00* Test Item Value Reference Range Interpretation Comments Red Blood Count (test code = 789-8) 4.89 3.6-5.1 [facility] KingwoodHemoglobin2018-08-31 09:51:00* Test Item Value Reference Range Interpretation Comments Hemoglobin (test code = 53384-5) 14.4 12.0-16.0 [facility]woodHematocrit2018-08-31 09:51:00* Test Item Value Reference Range Interpretation Comments Hematocrit (test code = 4544-3) 43.4 34.2-44.1 [facility] KingwoodMean Corpuscular Lhwjcs3923-56-66 09:51:00* Test Item Value Reference Range Interpretation Comments Mean Corpuscular Volume (test code = 787-2) 88.8 81-99 [facility] KingwoodMean Corpuscular Titxtkzwac8829-28-10 09:51:00* Test Item Value Reference Range Interpretation Comments Mean Corpuscular Hemoglobin (test code = 785-6) 29.4 28-32 [facility] KingwoodMean Corpuscular Hemoglobin Concent 2018-06-08 09:51:00* Test Item Value Reference Range Interpretation Comments Mean Corpuscular Hemoglobin Concent (test code = 786-4) 33.2 31-35 [facility] KingwoodRed Cell Distribution Qbdtm0596-65-29 09:51:00* Test Item Value Reference Range Interpretation Comments Red Cell Distribution Width (test code = 87421-7) 13.0 11.7 -14.4 [facility] KingwoodPlatelet Capsg7163-77-92 09:51:00* Test Item Value Reference Range Interpretation Comments Platelet Count (test code = 777-3) 185 140-360 [facility] KingwoodNeutrophils (%) (Auto)2018-06-08 09:51:00 * Test Item Value Reference Range Interpretation Comments Neutrophils (%) (Auto) (test code = 45514-1) 71.3 38.7-80.0 [facility] KingwoodLymphocytes (%) (Auto)2018-06-08 09:51:00 * Test Item Value Reference Range Interpretation Comments Lymphocytes (%) (Auto) (test code = 736-9) 14.6 18.0-39.1 L [facility] KingwoodMonocytes (%) (Auto)2018-06-08 09:51:00* Test Item Value Reference Range Interpretation Comments Monocytes (%) (Auto) (test code = 5905-5) 10.9 4.4-11.3 [facility] KingwoodEosinophils (%) (Auto)2018-06-08 09:51:00 * Test Item Value Reference Range Interpretation Comments Eosinophils (%) (Auto) (test code = 713-8) 2.3 0.0-6.0 [facility] KingwoodBasophils (%) (Auto)2018-06-08 09:51:00* Test Item Value Reference Range Interpretation Comments Basophils (%) (Auto) (test code = 706-2) 0.4 0.0-1.0 [facility] KingwoodIM GRANULOCYTES %2018-06-08 09:51:00* Test Item Value Reference Range Interpretation Comments IM GRANULOCYTES % (test code = IM GRANULOCYTES %) 0.5 0.0- 1.0 [facility] KingwoodNeutrophils # (Auto)2018-06-08 09:51:00* Test Item Value Reference Range Interpretation Comments Neutrophils # (Auto) (test code = 751-8) 4.1 2.1-6.9 [facility] KingwoodLymphocytes # (Auto)2018-06-08 09:51:00* Test Item Value Reference Range Interpretation Comments Lymphocytes # (Auto) (test code = 95916-2) 0.8 1.0-3.2 L [facility] KingwoodMonocytes # (Auto)2018-06-08 09:51:00* Test Item Value Reference Range Interpretation Comments Monocytes # (Auto) (test code = 742-7) 0.6 0.2-0.8 [facility] KingwoodEosinophils # (Auto)2018-06-08 09:51:00* Test Item Value Reference Range Interpretation Comments Eosinophils # (Auto) (test code = 711-2) 0.1 0.0-0.4 [facility] KingwoodBasophils # (Auto)2018-06-08 09:51:00* Test Item Value Reference Range Interpretation Comments Basophils # (Auto) (test code = 704-7) 0.0 0.0-0.1 [facility] KingwoodAbsolute Immature Granulocyte (auto 2018-06-08 09:51:00* Test Item Value Reference Range Interpretation Comments Absolute Immature Granulocyte (auto (charanjit t code = Absolute Immature Granulocyte (auto) 0.03 0-0.1 [facility] KingwoodWhite Blood Kploe6520-58-13 09:51:00* Test Item Value Reference Range Interpretation Comments White Blood Count (test code = 6690-2) 5.69 4.8-10.8 [facility] KingwoodRed Blood Mnozo0369-41-57 09:51:00* Test Item Value Reference Range Interpretation Comments Red Blood Count (test code = 789-8) 4.89 3.6-5.1 [facility] KingwoodHemoglobin2018-08-31 09:51:00* Test Item Value Reference Range Interpretation Comments Hemoglobin (test code = 04510-1) 14.4 12.0-16.0 [facility] KingwoodHematocrit2018-08-31 09:51:00* Test Item Value Reference Range Interpretation Comments Hematocrit (test code = 4544-3) 43.4 34.2-44.1 [facility] KingwoodMean Corpuscular Cnzlrj9782-19-97 09:51:00* Test Item Value Reference Range Interpretation Comments Mean Corpuscular Volume (test code = 787-2) 88.8 81-99 [facility] KingwoodMean Corpuscular Tldwfkigez5695-76-14 09:51:00* Test Item Value Reference Range Interpretation Comments Mean Corpuscular Hemoglobin (test code = 785-6) 29.4 28-32 [facility] KingwoodMean Corpuscular Hemoglobin Concent 2018-06-08 09:51:00* Test Item Value Reference Range Interpretation Comments Mean Corpuscular Hemoglobin Concent (test code = 786-4) 33.2 31-35 [facility] KingwoodRed Cell Distribution Cfhja7697-78-37 09:51:00* Test Item Value Reference Range Interpretation Comments Red Cell Distribution Width (test code = 87314-0) 13.0 11.7 -14.4 [facility] KingwoodPlatelet Yepau3326-10-74 09:51:00* Test Item Value Reference Range Interpretation Comments Platelet Count (test code = 777-3) 185 140-360 [facility] KingwoodNeutrophils (%) (Auto)2018-06-08 09:51:00 * Test Item Value Reference Range Interpretation Comments Neutrophils (%) (Auto) (test code = 69026-0) 71.3 38.7-80.0 [facility] KingwoodLymphocytes (%) (Auto)2018-06-08 09:51:00 * Test Item Value Reference Range Interpretation Comments Lymphocytes (%) (Auto) (test code = 736-9) 14.6 18.0-39.1 L [facility] KingwoodMonocytes (%) (Auto)2018-06-08 09:51:00* Test Item Value Reference Range Interpretation Comments Monocytes (%) (Auto) (test code = 5905-5) 10.9 4.4-11.3 [facility] KingwoodEosinophils (%) (Auto)2018-06-08 09:51:00 * Test Item Value Reference Range Interpretation Comments Eosinophils (%) (Auto) (test code = 713-8) 2.3 0.0-6.0 [facility] KingwoodBasophils (%) (Auto)2018-06-08 09:51:00* Test Item Value Reference Range Interpretation Comments Basophils (%) (Auto) (test code = 706-2) 0.4 0.0-1.0 [facility] KingwoodIM GRANULOCYTES %2018-06-08 09:51:00* Test Item Value Reference Range Interpretation Comments IM GRANULOCYTES % (test code = IM GRANULOCYTES %) 0.5 0.0- 1.0 [facility] KingwoodNeutrophils # (Auto)2018-06-08 09:51:00* Test Item Value Reference Range Interpretation Comments Neutrophils # (Auto) (test code = 751-8) 4.1 2.1-6.9 [facility] KingwoodLymphocytes # (Auto)2018-06-08 09:51:00* Test Item Value Reference Range Interpretation Comments Lymphocytes # (Auto) (test code = 27978-9) 0.8 1.0-3.2 L [facility] KingwoodMonocytes # (Auto)2018-06-08 09:51:00* Test Item Value Reference Range Interpretation Comments Monocytes # (Auto) (test code = 742-7) 0.6 0.2-0.8 [facility] KingwoodEosinophils # (Auto)2018-06-08 09:51:00* Test Item Value Reference Range Interpretation Comments Eosinophils # (Auto) (test code = 711-2) 0.1 0.0-0.4 [facility] KingwoodBasophils # (Auto)2018-06-08 09:51:00* Test Item Value Reference Range Interpretation Comments Basophils # (Auto) (test code = 704-7) 0.0 0.0-0.1 [facility] KingwoodAbsolute Immature Granulocyte (auto 2018-06-08 09:51:00* Test Item Value Reference Range Interpretation Comments Absolute Immature Granulocyte (auto (charanjit t code = Absolute Immature Granulocyte (auto) 0.03 0-0.1 [facility]
--- OUTSIDE RECORDS SUMMARY | 2020-07-05 16:23 | XMS REPORT | Continuity of Care Document ---
Author Author [facility] t Organization [facility] Address [address] [place] [address] Phone Unavailable Care Team Providers Care Chemistry Faculty Member Name Role Phone NONSTAFF PCP Unavailable CHAS SERVIN Attphys Unavailable Jay GAMA Attphys Unavailable Adele MORLEY Attphys Unavailable CHAS SERVIN Admphys Unavailable Payers Payer Name Policy Type Policy Number Effective Date Expiration Date patito Medicare A & B [id number] 2009 00:00:00 C [facility] [employer] Medicare [id number] [facility] Miscellaneous Indemnity [id number] C [facility] Problems Condition Name Condition Details Condition Category Status Onset Date Resolution Date Last Treatment Date Treating Clinician Comments Source Monocytosis Monocytosis Problem Active 2017-01-09 00:00:00 [facility] Steatosis of liver Steatosis of Liver Problem Active 2017-01-09 00:00:0 0 [facility] Tachycardia Tachycardia Problem Active 2017-01-09 00:00:00 [facility] Elevated blood-pressure reading without diagnosis of h ypertension Elevated Blood-pressure Reading without Diagnosis of Hypertension Problem Act job 2017-01-09 00:00:00 [facility] Malignant tumor of breast Malignant Tumor of Breast Problem Ac tive 2017-01-02 00:00:00 [facility] Body mass index 30+ - obesity Body Mass Index 30+ - Obesity Problem Active 2017-01-02 00:00:00 [facility] Asthma Asthma Problem Active 2017-01-02 00:00:00 [facility] Diarrhea Diarrhea Problem Active 2017-01-02 00:00:00 [facility] Sepsis Sepsis Problem Active [facility] Allergies, Adverse Reactions, Alerts Allergy Name Allergy Type Status Severity Reaction(s) Onset Date Inacti ve Date Treating Clinician Comments Source Codeine Allergy to substance Active Vomiting 2019-04-09 00:00:00 [facility] Iodinated Contrast Media DA Active U 2019-04-09 00:00:00 [facility] codeine DA Active U 2019-04-09 00:00:00 [facility] adhesive tape DA Active MO 2019-04-09 00:00:00 [facility] Iodine Allergy to Substance Active 2016-12-30 00:00:00 [facility] Codeine Allergy to Substance Active 2016-12-30 00:00:00 [facility] Iodinated Contrast- Oral and IV Dye DA Active U 2016-11-10 3 00:00:00 [facility] codeine DA Active U 2016-12-01 00:00:00 [facility] Social History Smoking Status Start Date Stop Date Source Former Smoker [facility] akintice Medications Ordered Medication Name Filled Medication [...] oral route for 10 days. [facility] albuterol sulfate HFA 90 mcg/actuation a erosol inhaler Inhale 2 puffs every day by inhalation route as needed. albuterol sulfate HFA 90 mcg/actuation a erosol inhaler Inhale 2 puffs every day by inhalation route as needed. No albuterol sulfate HFA 90 mcg/actuation aerosol inhaler Inhale 2 puffs every day by inhalation route as needed. [facility] amil Practice EpiPen 2-Juan 0.3 mg/0.3 mL injection, auto-injector PA N EpiPen 2-Juan 0.3 mg/0.3 mL injection, auto-injector PRN No EpiPen 2-Juan 0.3 mg/0.3 mL injection, auto-injector PRN [facility] makenzie Practice ipratropium 0.5 mg-albuterol 3 mg (2.5 mg base)/3 mL n ebulization soln PRN ipratropium 0.5 mg-albuterol 3 mg (2.5 mg base)/3 mL nebulization soln PRN No ipratropium 0.5 mg-albuterol 3 mg (2.5 mg base)/3 mL nebulization soln PRN [facility] ice montelukast 10 mg tablet montelukast 10 mg tablet No montelukast 10 mg tablet [facility] ice prednisone 10 mg tablet prednisone 10 mg tablet No prednisone 10 mg tablet [facility] ice tramadol 50 mg tablet Take 1 tablet every 4 hours by o ral route for 7 days. tramadol 50 mg tablet Take 1 tablet every 4 hours by oral route for 7 days. No 1 Q4H tramadol 50 mg tablet Take 1 tablet every 4 hours by oral route for 7 days. [facility] ice Xolair 2 injections Unknown strength ONCE A MONTH Xola ir 2 injections Unknown strength ONCE A MONTH No Xo lair 2 injections Unknown strength ONCE A MONTH [facility] ice Immunizations Ordered Immunization Name Filled Immunization Name Date Status Comments Source pneumococcal conjugate PCV 13 pneumococcal conjugate PCV 13 2019 16:49:00 Completed [facility] influenza, high dose seasonal influenza, high dose seasonal 2018 13:57:00 Completed [facility] influenza, unspecified formulation influenza, unspecified fo rmulation 2017-06-22 00:00:00 Completed [facility] ice pneumococcal polysaccharide PPV23 pneumococcal polysaccharid e PPV23 2016-07-27 00:00:00 Completed [facility] ice zoster live zoster live 2016-07-27 00:00:00 Completed Delicia pete [facility] influenza, high dose seasonal influenza, high dose seasonal 2015 00:00:00 Completed [facility] Tdap Tdap 2015-10-09 00:00:00 Completed Demond de los santos [facility] pneumococcal polysaccharide PPV23 pneumococcal polysaccharid e PPV23 2013-07-22 00:00:00 Completed [facility] ice Vital Signs Vital Name Observation Time Observation Value Comments Source BP Diastolic 2020-05-28 00:00:00 70 mm[Hg] [facility] Height 2020-05-28 00:00:00 64.6 [in_i] [facility] [...] Practice BP Diastolic 2018-11-05 00:00:00 90 mm[Hg] [facility] Height 2018-11-05 00:00:00 64.6 [in_i] [facility] BMI (Body Mass Index) 2018-11-05 00:00:00 33 kg/m2 [facility] BP Systolic 2018-11-05 00:00:00 140 mm[Hg] [facility] Body Weight 2018-11-05 00:00:00 196 [lb_av] [facility] Procedures Procedure Date / Time Performed Performing Clinician Sour e MAMMO, screening, digital, bilateral 2020-05-28 00:00:[address] [facility] [address] of abdomen and pelvis without contrast 2018-06-08 00:00:00 HARI SALCEDO [facility] Magnetic resonance imaging of abdomen without contrast 06-08 00:00:00 HARI MORLEY [facility] Breast Surgery 2016-12-07 00:00:00 [facility] javad [facility] Colonoscopy 2015-12-21 00:00:00 [facility] ly [facility] Operation on Lung 2004-10-09 00:00:00 [facility] Abdoulaye kapoor [facility] Plan of Care Planned Activity Planned Date Details Comments Source Diagnostic Test Pending 2020-05-28 00:00:00 CBC w/ auto diff [code = CBC w/ auto diff] [facility] Diagnostic Test Pending 2020-05-28 00:00:00 CMP, serum or pl asma [code = CMP, serum or plasma] [facility] Diagnostic Test Pending 2020-05-28 00:00:00 TSH, serum or pl asma [code = TSH, serum or plasma] [facility] Diagnostic Test Pending 2020-05-28 00:00:00 urinalysis, dips tick [code = urinalysis, dipstick] [facility] Diagnostic Test Pending 2020-05-28 00:00:00 lipid panel, ser um [code = lipid panel, serum] [facility] Diagnostic Test Pending 2020-05-28 00:00:00 hepatitis C viru s RNA, quant, PCR, serum or plasma [code = hepatitis C virus RNA, quant, PCR, serum or plasma] [facility] Diagnostic Test Pending 2020-05-28 00:00:00 HbA1c (hemoglobi n A1c), blood [code = HbA1c (hemoglobin A1c), blood] [facility] 2020-05-28 00:00:00 culture, urine [ code = culture, urine] [facility] Future Appointment 2020-08-28 00:00:00 Jennifer Daniels, [address]; [address], [place] [address] [facility] Instructions [facility] Encounters Start Date/Time End Date/Time Encounter Type Admission Type Attendi [facility] Care Department Encounter ID Source 2020-05-28 00:00:00 2020-05-28 00:00:00 Jennifer ware MD: [address], [address], [place] [address], Ph. [facility] Medical - VM_HOU_Hobby [id number] [facility] 2020-04-07 00:00:00 2020-04-07 00:00:00 Karen Lyn MD: [id number] [facility], [address] [address], Ph. [facility] Medical - VM_HOU_[place] ([place]) [id number] [facility] e 2019-11-18 00:00:00 2019-11-18 00:00:00 Jennifer ware MD: [address], [address], [place] [address], Ph. [facility] Medical - VM_HOU[facility] [id number] [facility] 2019-09-24 00:00:00 2019-09-24 00:00:00 Ty Qureshi Jr, MD: [address], [address], [place] [address], Ph. [facility] Medical - VM[facility]HOU[facility] [id number] [facility] 2019-06-18 00:00:00 2019-06-18 00:00:00 Jennifer ware MD: [address], [address], [place] [address], Ph. [facility] [id number] [facility] 2019-02-18 05:15:00 2019-02-18 07:06:00 Departed Emergency Room 1 CYDNEY GMAA [facility] [id number] [facility] 2018-11-05 00:00:00 2018-11-05 00:00:00 Suzanna Reddy MD: [id number] [place] [address], Ph. [facility] [id number] [facility] 2018-06-08 09:07:00 2018-06-08 16:36:00 Departed Emergency Room 1 HARI MORLEY [facility] [id number] [facility] Results Test Description Test Time Test Comments Results Result Comments Source CHEST SINGLE (PORTABLE) 2020-07-05 06:42:00 [place] [address] Patient Name: ABRAN HATCH MR #: [id number] : 1945 Age/Sex: 75/F Req #: [id number] Adm Physician: CHAS SERVIN MD Ordered by: LUIS E BOWENS MD Report #: [id number] Location: MED/SURG2 Room/Bed: [facility] Procedure: [id number] DX/CHEST SINGLE (PORTABLE) Exam Date: Exam Time: [...] BOWENS MD CHEST SINGLE (PORTABLE) 2020-07-03 15:14:00 [place] [address] Patient Name: ABRAN HATCH MR #: [id number] : 1945 Age/Sex: 75/F Req #: [id number] Adm Physician: Ordered by: JOON GARCIA MD Report #: [id number] Location: ER Room/Bed: Procedure: [id number] DX/CHEST SINGLE (PORTABLE) Exam Date: 07/03/20 Exam [...] mammographic images were evaluated by either a Chi2gel M-Vu or a Allocab ImageChecker CAD (computer aided detection system). Comparison is made to exams dated 12/17/2018 mammogram, 06/04/2018 mammogram, and 12/05/2017 mammogram - [facility] There are scattered fibroglandular tissues [...] 06/04/2018 mammogram, and 12/05/2017 mammogram - [facility]-. Real-time ultrasound of both breasts [...] in 1 year.Deandra Ramirez M.D. dm/:06/23/2020 10:12:21 Animal Biologist: Eileen MOJIAC, [facility]-FWletter sent: BIRADS 1-2 Combo FU [...] mammographic images were evaluated by either a Chi2gel M-Vu or a Allocab ImageChecker CAD (computer aided detection system). Comparison is made to exams dated 12/17/2018 mammogram, 06/04/2018 mammogram, and 12/05/2017 mammogram - [facility]-. There are scattered fibroglandular tissues [...] 06/04/2018 mammogram, and 12/05/2017 mammogram - [facility]-. Real-time ultrasound of both breasts [...] in 1 year.Deandra Ramirez M.D. dm/:06/23/2020 10:12:21 Animal Biologist: Eileen MOJICA, [facility]-FWletter sent: BIRADS 1-2 Combo FU Letter Mammogram BI-RADS: 0 Incomplete: Additional Imaging Evaluation Needed Ultrasound BI-RADS: 1 Negative - DUP VEIN ALLEN 2019-12-03 12:10:00 Name: BLAINE RUIZ SAUNDRA [facility]ACKETT [facility] : 1945 Age/S: 74 / F [address] [place], [place] [address]vd Unit #: [id number] Loc: [place] [address] Phys: Дмитрий Jon MD Acct: [id number] Dis Date: Status: REG CLI PHONE #: [phone] Exam Date: 12/03/2019 1152 FAX #: [phone] Reason: R60.9, EDEMA, UNSPECIFIED. EXAMS: CPT CODE: [id number] DUP VEIN ALLEN [address]8945 EXAMINATION: Bilateral lower extremity venous Doppler December [...] T3) 75 ng/dL 71-180 Performed At: [facility] [address] [id number] Mike Thompson MD Ph:[phone] FAX:[phone]:[phone] W/AUTO [id number] 14:29:00* Test Item Value Reference Range Interpretation [...] DIFF REQUIRED (test code = MDIFF) NO FAX:[phone]:[phone] PULM VENT [id number] 13:30:00 FAX: Дмитрий Abreu MD [phone] [place]: St: REG FAX: Suzanna Shaikh [phone] Name: ABRAN HATCH [facility] : 1945 Age/S: 74/F [address] [place] [address] Unit #: [id number] Loc: [place] [address] Phys: Дмитрий Jon MD Acct: [id number] Dis Date: Status: REG CLI PHONE #: [phone] Exam Date: 12/02/2019 1247 FAX #: [phone] Reason: R06.02, SHORTNESS OF BREATH. EXAMS: CPT CODE: [id number] [facility] 99888 Nuclear lung ventilation/perfusion scan: HISTORY: Short of [...] VQ mismatch IMPRESSION: Normal lung scan SL: [id number] at 1 330 Reported and signed by: Jackson Piper M.D. CC: Дмитрий Jon MD; Suzanna Reddy MD Technologist: CHARLY Macdonald (N)(CT) Trnscrd Date/Time/By: (1330) : By: MeganETG Orig Print D/T: S: 12/02/2019 (1079) PAGE 1 Signed Report B-TYPE NATRIURETIC [id number] 12:55:00* Test Item Value Reference Range Interpretation Comments B-TYPE NATRIURETIC PEPTIDE (test code = BNP) 49.8 PG/ML 0-100 N FAX:[phone]:[phone] METABOLIC [id number] 12:55:00* Test Item Value Reference Range Interpretation [...] ALKP) 77 IUnit/L 20-125 N THYROID STIMULATING [id number] 12:55:00* Test Item Value Reference Range Interpretation Comments THYROID STIMULATING HORMONE (test code = TSH) 0.92 0.42-5.4 7 N Results in keith- International Units/mL T4 (THYROXINE)2019-12-02 12:52:00* Test Item Value Reference Range Interpretation Comments T4 (THYROXINE) (test code = T4) 8.1 mcg/dL 4.5-12.1 N [id number] 12:45:00* Test Item Value Reference Range Interpretation Comments D-DIMER (test code = DDIMER) 1161 ng/mlFEU <=500 HH THROMBOSIS AND/OR PULMONARY EMBOLISM AND THE CLINICAL CUT- OFF VALUE FOR EXCLUSION (500 ng/mL FEU) OF THESE CONDITIONSIS VALIDATED BY THE STOCK HOLDER OF THE METHOD. A NEGATIVE D-DIMER RESULT WHEN COMBINED WITH A CLINICALASSESSMENT OF LOW PRETEST PROBABILITY HAS BEEN SHOWN TO HAVEA HIGH NEGATIVE PREDICTIVE VALUE OF DVT OR PE. D-DIMER VALUES >500 ng/mL FEU ARE NOT DIAGNOSTIC FOR DVT, PEor DIC WITHOUT OTHER CONFIRMATORY TESTS AND APPROPRIATECLINICAL EUALUATIONS. FAX:[phone]:[phone]- XR CHEST 2 [id number] 11:50:00 FAX: Дмитрий Abreu MD [phone] [place]: St: [facility] FAX: Suzanna Shaikh [phone] Name: ABRAN HATCH [facility] : 1945 Age/S: 74/F [address] [place] [address] Unit #: [id number] Loc: [place] [address] Phys: Дмитрий Jon MD Acct: [id number] Dis Date: Status: REG CLI PHONE #: [phone] Exam Date: 12/02/2019 1102 FAX #: [phone] Reason: J20.9, ACUTE BRONCHITIS, UNSPECIFIED. EXAMS: CPT CODE: [id number] XR CHEST 2 V 23423 CLINICAL HISTORY: J20.9, ACUTE BRONCHITIS, UNSPECIFIED. COMPARISON: [...] By: MeganYOS Orig Print D/T: S: 12/02/2019 (9106) PAGE 1 Signed Report - CT CHEST W/O [id number] 18:49:00 Name: ABRAN HATHC [facility] : 1945 Age/S: 74 / F [address] [place] [address] Blvd Unit #: [id number] Loc: [place] [address] Phys: IsmaTrevin Acct: [id number] Dis Date: Status: ADM IN PHONE #: [phone] Exam Date: 11/24/2019 1728 FAX #: [phone] Reason: left lung nodule seen on CXR EXAMS: CPT CODE: [id number] CT CHEST W/O CONTRAST [address] without contrast: Multiplanar helical imaging [...] 1 Signed Report (CONTINUED) Name: ABRAN HATCH [facility] : 1945 Age/S: 74 / F [address] [place] [address] Unit #: [id number] Loc: [place] [address] Ph ys: Trevin Ashby DO Acct: [id number] Dis Date: Status: ADM IN PHONE #: [phone] Exam Date: 11/24/2019 1728 FAX #: [phone] Reason: left lung nodule seen on CXR EXAMS: CPT CODE: [id number] CT CHEST W/O CONTRAST 94306 <Continued> 3. Small cysts in the dome of the liver SL: EG-H at 1849 Reported and signed by: Jackson Piper M.D. CC: Trevin Ashby DO; Suzanna Reddy MD Technologist:Princess Stokes, RT(R)(CT) CTDI: DLP: Trnscb Date/Time: 11/24/2019 (1848) tANEESHG Orig Print D/T: S: 11/24/2019 (1851) PAGE 2 Signed Report LACTIC [id number] 15:24:00* Test Item Value Reference Range Interpretation Comments LACTIC ACID (test code = LACT) 1.3 mmol/L 0.4-1.9 N BASIC METABOLIC [id number] 15:24:00* Test Item Value Reference Range Interpretation [...] CA) 9.2 mg/dL 8.0-10.5 N HEPATIC FUNCTION [id number] 15:24:00* Test Item Value Reference Range Interpretation [...] 20-125 N UA RFLX MICR CULT IF [id number] 15:19:00* Test Item Value Reference Range Interpretation [...] src Dysuria/FrequencySpecim en Description: CLEAN CATCHBASIC METABOLIC [id number] 15:01:00* Test Item Value Reference Range Interpretation [...] CA) 9.2 mg/dL 8.0-10.5 N HEPATIC FUNCTION [id number] 15:01:00* Test Item Value Reference Range Interpretation [...] code = ALKP) IUnit/L 20-125 CBC W/AUTO [id number] 14:46:00* Test Item Value Reference Range Interpretation [...] = MDIFF) NO - XR CHEST 1 [id number] 14:17:00 FAX: Trevin Howell DO [phone] [place]: St: PRE Name: ABRAN CAMPOS [facility] : [birth year] Age/S: 74/F [address] [place] [address] Unit #: [id number] Loc: [address] [place] [address] Phys: Trevin Ashby DO Acct: [id number] Dis Date: Status: PRE ER PHONE #: [phone] Exam Date: 11/24/2019 1414 FAX #: [phone] Reason: asthma EXAMS: CPT CODE: [id number] XR CHEST 1 V 02538 CLINICAL HISTORY:asthma COMPARISON:May 01, 2018 Frontal film [...] Noris Gregg RT(R); Emelia Schwartz RT(R) Tr [facility] Date/Time/By: 11/24/2019 (3263) : By: Mariia Orig Print D/T: S: 11/24/2019 (9425) PAGE 1 Adele martinez Report Bacteria identified in Urine by Culture 2019-06-20 00:00:00* Test Item Value Reference Range Interpretation Comments culture, urine, routine (test code = culture, urine, routine) see ramone Sanabria [facility] PracticeUrinalysis macro (dipstick) panel - [id number] 14:59:00* Test Item Value Reference Range Interpretation Comments Color Color (test code = Color Color) yellow Color Appearance (test code = Color Appearance) clear Color Glucose (test code = Color Glucose) negative Color Bilirubin (test code = Color Bilirubin) negative Color Ketones (test code = Color Ketones) negative Color Specific [place] (test code = Color Specific [place]) 1.010 Color Blood (test code = Color Blood) moderate Color PH (test code = Color PH) 6.5 Color Protein (test code = Color Protein) negative Color Urobilinogen (test code = Color Urobilinogen) 0.2 Color Nitrites (test code = Color Nitrites) negative Color Leukocytes (test code = Color Leukocytes) [facility]- XR FLUORO FOR SPINE [id number] 11:12:00 Patient Name: ABRAN HATCH Unit No: [id number] EXAMS: CPT CODE: [id number] XR FLUORO FOR SPINE INJ 21851 LUMBAR TRANSFORAMINAL INJECTION REFERRING PHYSICIAN: PREOPERATIVE DIAGNO [...] Reported and signed by: Lauro Arizmendi M.D. [facility] NAME: ABRAN HATCH [address] [place] [address] PHYS: Lauro Castro MD [place], [place] [address] : 1945 AGE: 73 SEX: F LOC: [place] PHONE #: [phone] EXAM DATE: 04/09/2019 STATUS: [place] [facility] [place]: [phone] RAD #: D/C DT PAGE 1 Signed Report (CONTINUED) Patient Name: ABRAN HATCH Unit No: [id number] EXAMS: CPT CODE: [id number] XR FLUORO FOR SPINE INJ 01105 <Continued> CC: Lauro Arizmendi MD Technologist: NICK COLIN RT(R) Transcribed D/ (1112) Kathy [facility] NAME: ABRAN HATCH [address] [place] [address] PHYS: Lauro Castro MD [place] [address] : 1945 AGE: 73 SEX: F LOC: [place] PHONE #: [phone] EXAM DATE: 04/09/2019 STATUS: [place] [facility] [place] #: [phone] RAD #: D/C DT PAGE 2 Signed Report Patient Name: ABRAN HATCH Unit No: [id number] EXAMS: CPT CODE: [id number] XR FLUORO FOR SPINE INJ 05834 <Continued> Orig Print D/T: S: 04/09/2019 (1115) [facility] NAME: ABRAN HATCH [address] PHYS: Lauro Castro MD [place], [place] [address] : 1945 AGE: 73 SEX: F LOC: [place] PHONE #: [phone] EXAM DATE: 04/09/2019 STATUS: REG [facility] [place] #: [phone] RAD #: D/C DT PAGE 3 Signed Report HIP RIGHT 2-3 VW (+/- PELVIS)2019-02-18 06:21:[address], [place] [address] Patient Name: ABRAN HATCH MR #: [id number] : 1945 Age/Sex: 73/F Req #: [id number] Adm Physician: Ordered by: CYDNEY GAMA MD [...] COPY TO: CYDNEY GAMA MD BREAST ULTRASOUND [id number] 10:24:25 - DIAG MAMM BILATERAL AJ CAD DIGITALBILATERAL DIGITAL DIAGNOSTIC MAMMOGRAM 3D/2D WITH CAD: 12/17/2018CLINICAL: Previous breast cancer. Digital breast tomosynthesis was performed in addition to routine CC and MLO views. Current mammographic images were evaluated by either a Chi2gel M-Vu or a Allocab ImageChecker CAD (computer aided detection system). Comparison is made to exams dated 06/04/2018 mammogram, 12/05/2017 mammogram, and 07/13/2017 mammogram - [facility] There are scattered fibroglandular tissues [...] 12/05/2017 [facility], [facility] Real-time ultrasound of both breasts and both axilla was performed. No abnormalities were seen sonographically in either breast or either axilla. Clinical breast exam was unremarkable.IMPRESSION: NEGATIVE There is no sonographic evidence of malignancy. Patient has been informed that she should have a screening mammogram and supplemental ultrasound in 1 year.Deandra Ramirez M.D. dm/:12/18/2018 10:24:25 Animal Biologist: Yazmin Torres , [facility]-letter sent: BIRADS 1-2 Combo FU Letter Mammogram BI-RADS: 0 Indeterminate Ultrasound BI-RADS: 1 NegativeDIAG MAMM BILATERAL AJ CAD [id number] 10:24:25 - DIAG MAMM BILATERAL AJ CAD DIGITALBILATERAL DIGITAL DIAGNOSTIC MAMMOGRAM 3D/2D WITH CAD: 12/17/2018CLINICAL: Previous breast cancer. Digital breast tomosynthesis was performed in addition to routine CC and MLO views. Current mammographic images were evaluated by either a Chi2gel M-Vu or a Allocab ImageChecker CAD (computer aided detection system). Comparison is made to exams dated 06/04/2018 mammogram, 12/05/2017 mammogram, and [facility]. There are scattered fibroglandular tissues in both [...] 12/05/2017 mammogram, and 07/13/2017 mammogram - [facility]-FW. Real-time ultrasound of both breasts [...] Imaging Alfie hnologist: Yazmin Torres FW, [facility]-FWletter sent: BIRADS 1-2 Combo FU Letter Mammogram BI-RADS: 0 Indeterminate Ultrasound BI-RADS: 1 Nega tiveMRI ABDOMEN [id number] 15:21:00 [place] [address] Patient Name: ABRAN HATCH MR #: [id number] : 1945 Age/Sex: 72/F Req #: [id number] Adm Physician: Ordered by: HARI MORLEY MD Report #: [id number] Location: ER Room/Bed: Procedure: [id number] MRI/MRI ABDOMEN WO Exam Date: Exam Time: [...] COPY TO: HARI MORLEY MD CT ABDOMEN/PELVIS [id number] 12:13:00 [place] [address] Patient Name: ABRAN HATCH MR #: [id number] : 1945 Age/Sex: 72/F Req #: [id number] Adm Physician: Ordered by: HARI MORLEY MD Report #: [id number] Location: ER Room/Bed: Procedure: [id number] CT/CT ABDOMEN/PELVIS WO Exam Date: 06/08/18 Exam Time: 1130 REPORT STAT US: Signed EXAM: CT Abdomen and Pelvis WITHOUT contrast INDICATION: COMPARISON: None. TECHNIQUE: Abdomen and pelvis were scanned utilizing a mult [employer]tector helical scanner from the lung base to [...] 1234 COPY TO: BOOKER MORLEY MD Sodium Scfht1049-47-70 10:10:00* Test Item Value Reference Range Interpretation Comments Sodium Level (test code = 2951-2) 136 136-145 [facility]Potassium Xzsra5508-10-04 10:10:00* Test Item Value Reference Range Interpretation Comments Potassium Level (test code = 2823-3) 4.0 3.5-5.1 [facility] HospitalChloride Jitit9491-07-95 10:10:00* Test Item Value Reference Range Interpretation Comments Chloride Level (test code = 2075-0) 99 98-107 [facility] HospitalCarbon Dioxide Mimmh7605-86-51 10:10:00* Test Item Value Reference Range Interpretation Comments Carbon Dioxide Level (test code = 2028-9) 25 22-29 [facility] HospitalAnion Bze5263-85-77 10:10:00* Test Item Value Reference Range Interpretation Comments Anion Gap (test code = 52864-4) 16.0 8-16 [facility] HospitalBlood Urea Xobvtgwc4838-42-15 10:10:00* Test Item Value Reference Range Interpretation Comments Blood Urea Nitrogen (test code = 3094-0) 20 7-26 [facility] HospitalCreatinine2018-08-31 10:10:00* Test Item Value Reference Range Interpretation Comments Creatinine (test code = 2160-0) 0.79 0.57-1.11 [facility] HospitalBUN/Creatinine Adaki2963-88-45 10:10:00* Test Item Value Reference Range Interpretation Comments BUN/Creatinine Ratio (test code = 3097-3) 25 6-25 [facility] HospitalEstimat Glomerular Filtration Rate 2018-06-08 10:10:00* Test Item Value Reference Range Interpretation Comments Estimat Glomerular Filtration Rate (test code = 43748-0) 60- >60 Ranges were taken from the National Kidney Disease Education Program and the [facility] literature.Reference ranges:60 or greater: Lsbtje77-48 ( for 3 consecutive months): Chronic kidney disease 15 or less: Kidney failureJohn Peter Smith HospitalGlucose Mffow7367-85-37 10:10:00* Test Item Value Reference Range Interpretation Comments Glucose Level (test code = HXR7772) 120 74-118 H [facility] HospitalCalcium Avbwl8286-34-83 10:10:00* Test Item Value Reference Range Interpretation Comments Calcium Level (test code = 80620-7) 9.8 8.4-10.2 [facility] HospitalTotal Cwivtwmiw7676-06-18 10:10:00* Test Item Value Reference Range Interpretation Comments Total Bilirubin (test code = 1975-2) 1.0 0.2-1.2 [facility] HospitalAspartate Amino Transf (AST/SGOT) 2018-06-08 10:10:00* Test Item Value Reference Range Interpretation Comments Aspartate Amino Transf (AST/SGOT) (test code = Aspartate Amino Transf (AST/SGOT)) 16 5-34 [facility] HospitalAlanine Aminotransferase (ALT/SGPT) 2018-06-08 10:10:00* Test Item Value Reference Range Interpretation Comments Alanine Aminotransferase (ALT/SGPT) (test code = 1742-6) 19 0-55 [facility] HospitalTotal Neezqac8281-12-23 10:10:00* Test Item Value Reference Range Interpretation Comments Total Protein (test code = 2885-2) 6.7 6.5-8.1 [facility] HospitalAlbumin2018-08-31 10:10:00* Test Item Value Reference Range Interpretation Comments Albumin (test code = 1751-7) 3.3 3.5-5.0 L [facility] HospitalGlobulin2018-08-31 10:10:00* Test Item Value Reference Range Interpretation Comments Globulin (test code = 26674-6) 3.4 2.3-3.5 [facility] HospitalAlbumin/Globulin Zpomf3002-95-98 10:10:00 * Test Item Value Reference Range Interpretation Comments Albumin/Globulin Ratio (test code = 1759-0) 1.0 0.8-2.0 [facility] HospitalAlkaline Iahivbqtene9618-90-74 10:10:00* Test Item Value Reference Range Interpretation Comments Alkaline Phosphatase (test code = 6768-6) 58 40-150 [facility]wayodium Lzwzd7579-26-67 10:10:00* Test Item Value Reference Range Interpretation Comments Sodium Level (test code = 2951-2) 136 136-145 [facility] HospitalPotassium Vxawg9746-42-85 10:10:00* Test Item Value Reference Range Interpretation Comments Potassium Level (test code = 2823-3) 4.0 3.5-5.1 [facility] HospitalChloride Vosbj8100-24-01 10:10:00* Test Item Value Reference Range Interpretation Comments Chloride Level (test code = 2075-0) 99 98-107 [facility] HospitalCarbon Dioxide Robgf6881-64-77 10:10:00* Test Item Value Reference Range Interpretation Comments Carbon Dioxide Level (test code = 2028-9) 25 22-29 [facility] HospitalAnion Enb5446-33-12 10:10:00* Test Item Value Reference Range Interpretation Comments Anion Gap (test code = 70273-3) 16.0 8-16 [facility] HospitalBlood Urea Dnivhnyz8417-77-19 10:10:00* Test Item Value Reference Range Interpretation Comments Blood Urea Nitrogen (test code = 3094-0) 20 7-26 [facility] HospitalCreatinine2018-08-31 10:10:00* Test Item Value Reference Range Interpretation Comments Creatinine (test code = 2160-0) 0.79 0.57-1.11 [facility] HospitalBUN/Creatinine Dzndo7135-46-21 10:10:00* Test Item Value Reference Range Interpretation Comments BUN/Creatinine Ratio (test code = 3097-3) 25 6-25 [facility] HospitalEstimat Glomerular Filtration Rate 2018-06-08 10:10:00* Test Item Value Reference Range Interpretation Comments Estimat Glomerular Filtration Rate (test code = 283519769) > 60 >60 Ranges were taken from the National Kidney Disease Education Program and the [facility] literature.Reference ranges:60 or greater: Aknvvc95-54 ( for 3 consecutive months): Chronic kidney disease 15 or less: Kidney failureJohn Peter Smith HospitalGlucose Gtaxx3815-95-83 10:10:00* Test Item Value Reference Range Interpretation Comments Glucose Level (test code = KUJ3134) 120 74-118 H [facility] HospitalCalcium Dizla7469-12-09 10:10:00* Test Item Value Reference Range Interpretation Comments Calcium Level (test code = 01673-4) 9.8 8.4-10.2 [facility] HospitalTotal Ygorwkjrx1978-21-74 10:10:00* Test Item Value Reference Range Interpretation Comments Total Bilirubin (test code = 1975-2) 1.0 0.2-1.2 [facility] HospitalAspartate Amino Transf (AST/SGOT) 2018-06-08 10:10:00* Test Item Value Reference Range Interpretation Comments Aspartate Amino Transf (AST/SGOT) (test code = Aspartate Amino Transf (AST/SGOT)) 16 5-34 [facility] HospitalAlanine Aminotransferase (ALT/SGPT) 2018-06-08 10:10:00* Test Item Value Reference Range Interpretation Comments Alanine Aminotransferase (ALT/SGPT) (test code = 1742-6) 19 0-55 [facility] HospitalTotal Lxoqbbh7010-66-46 10:10:00* Test Item Value Reference Range Interpretation Comments Total Protein (test code = 2885-2) 6.7 6.5-8.1 [facility] HospitalAlbumin2018-08-31 10:10:00* Test Item Value Reference Range Interpretation Comments Albumin (test code = 1751-7) 3.3 3.5-5.0 L [facility] HospitalGlobulin2018-08-31 10:10:00* Test Item Value Reference Range Interpretation Comments Globulin (test code = 99393-2) 3.4 2.3-3.5 [facility] HospitalAlbumin/Globulin Olnga0832-74-17 10:10:00 * Test Item Value Reference Range Interpretation Comments Albumin/Globulin Ratio (test code = 1759-0) 1.0 0.8-2.0 [facility] HospitalAlkaline Vxcfabqkgaf6244-88-72 10:10:00* Test Item Value Reference Range Interpretation Comments Alkaline Phosphatase (test code = 6768-6) 58 40-150 [facility] HospitalUrine VVA4318-41-85 10:07:00* Test Item Value Reference Range Interpretation Comments Urine WBC (test code = 5821-4) 11-20 0-5 H [facility] HospitalUrine ZRN3415-77-77 10:07:00* Test Item Value Reference Range Interpretation Comments Urine RBC (test code = 68755-0) 6-10 0-5 H [facility] HospitalUrine Hzntuvdr8563-66-11 10:07:00* Test Item Value Reference Range Interpretation Comments Urine Bacteria (test code = 83752-8) MODERATE NONE H [facility] HospitalUrine Epithelial Mehjf2651-96-08 10:07:00 * Test Item Value Reference Range Interpretation Comments Urine Epithelial Cells (test code = 69752-6) MODERATE NONE [facility] HospitalUrine PZH6459-53-00 10:07:00* Test Item Value Reference Range Interpretation Comments Urine WBC (test code = 5821-4) 11-20 0-5 H [facility] HospitalUrine BPJ9394-31-72 10:07:00* Test Item Value Reference Range Interpretation Comments Urine RBC (test code = 59037-9) 6-10 0-5 H [facility] HospitalUrine Ftrpdfaj9391-23-58 10:07:00* Test Item Value Reference Range Interpretation Comments Urine Bacteria (test code = 04297-7) MODERATE NONE H [facility] HospitalUrine Epithelial Wclgu7043-26-74 10:07:00 * Test Item Value Reference Range Interpretation Comments Urine Epithelial Cells (test code = 37032-7) MODERATE NONE [facility] HospitalUrine Upbyw0954-43-25 09:58:00* Test Item Value Reference Range Interpretation Comments Urine Color (test code = 5778-6) STEVIE YELLOW H [facility] HospitalUrine Kysmqlr1053-32-74 09:58:00* Test Item Value Reference Range Interpretation Comments Urine Clarity (test code = 76526-7) SL CLOUDY CLEAR [facility] HospitalUrine Specific Ggevhpk1004-89-69 09:58:00 * Test Item Value Reference Range Interpretation Comments Urine Specific [place] (test code = 5811-5) 1.015 1.010-1.02 5 [facility] HospitalUrine vM6948-88-07 09:58:00* Test Item Value Reference Range Interpretation Comments Urine pH (test code = 50041-8) 6 5-7 [facility] HospitalUrine Leukocyte Ooybxiqz0556-41-29 09:58:00* Test Item Value Reference Range Interpretation Comments Urine Leukocyte Esterase (test code = 5799-2) TRACE NEGATIVE H [facility] HospitalUrine Sxddjwz1756-74-07 09:58:00* Test Item Value Reference Range Interpretation Comments Urine Nitrite (test code = 94606-4) NEGATIVE NEGATIVE [facility] HospitalUrine Mdondel1759-46-91 09:58:00* Test Item Value Reference Range Interpretation Comments Urine Protein (test code = 5804-0) 1+ NEGATIVE H [facility] HospitalUrine Glucose (UA)2018-06-08 09:58:00* Test Item Value Reference Range Interpretation Comments Urine Glucose (UA) (test code = 2349-9) NEGATIVE NEGATIVE [facility] HospitalUrine Skzikns9400-16-92 09:58:00* Test Item Value Reference Range Interpretation Comments Urine Ketones (test code = 61496-2) NEGATIVE NEGATIVE [facility] HospitalUrine Eisorbqxshxe8851-30-65 09:58:00* Test Item Value Reference Range Interpretation Comments Urine Urobilinogen (test code = 70084-0) 4 0.2-1 H [facility] HospitalUrine Kmpggaxnu6625-84-83 09:58:00* Test Item Value Reference Range Interpretation Comments Urine Bilirubin (test code = 1978-6) 2+ NEGATIVE H [facility] HospitalUrine Cktbe1132-78-08 09:58:00* Test Item Value Reference Range Interpretation Comments Urine Blood (test code = 71259-3) NEGATIVE NEGATIVE [facility] HospitalUrine Gfcri5897-35-57 09:58:00* Test Item Value Reference Range Interpretation Comments Urine Color (test code = 5778-6) STEVIE YELLOW H [facility] HospitalUrine Thyfnde5114-40-85 09:58:00* Test Item Value Reference Range Interpretation Comments Urine Clarity (test code = 98575-4) SL CLOUDY CLEAR [facility] HospitalUrine Specific Jxpetee5222-80-89 09:58:00 * Test Item Value Reference Range Interpretation Comments Urine Specific [place] (test code = 5811-5) 1.015 1.010-1.02 5 [facility] HospitalUrine pV7815-04-46 09:58:00* Test Item Value Reference Range Interpretation Comments Urine pH (test code = 65219-8) 6 5-7 [facility] HospitalUrine Leukocyte Tupgrhnx4296-17-38 09:58:00* Test Item Value Reference Range Interpretation Comments Urine Leukocyte Esterase (test code = 5799-2) [facility]GATIVE [facility] Vgeizjr1427-14-70 09:58:00* Test Item Value Reference Range Interpretation Comments Urine Nitrite (test code = 95976-8) NEGATIVE NEGATIVE [facility] HospitalUrine Xbgalet4490-10-51 09:58:00* Test Item Value Reference Range Interpretation Comments Urine Protein (test code = 5804-0) 1+ NEGATIVE H [facility] HospitalUrine Glucose (UA)2018-06-08 09:58:00* Test Item Value Reference Range Interpretation Comments Urine Glucose (UA) (test code = 2349-9) NEGATIVE NEGATIVE [facility] HospitalUrine Vqwkwot3331-74-18 09:58:00* Test Item Value Reference Range Interpretation Comments Urine Ketones (test code = 62182-0) NEGATIVE NEGATIVE [facility] HospitalUrine Pluysddavsze6362-36-58 09:58:00* Test Item Value Reference Range Interpretation Comments Urine Urobilinogen (test code = 04710-7) 4 0.2-1 H [facility] HospitalUrine Tjrwgrrqj6489-01-97 09:58:00* Test Item Value Reference Range Interpretation Comments Urine Bilirubin (test code = 1978-6) 2+ NEGATIVE H [facility] HospitalUrine Yllhb5590-96-27 09:58:00* Test Item Value Reference Range Interpretation Comments Urine Blood (test code = 14832-5) NEGATIVE NEGATIVE [facility] HospitalWhite Blood Iaxzs8971-19-97 09:51:00* Test Item Value Reference Range Interpretation Comments White Blood Count (test code = 6690-2) 5.69 4.8-10.8 [facility] HospitalRed Blood Bwcml8020-09-44 09:51:00* Test Item Value Reference Range Interpretation Comments Red Blood Count (test code = 789-8) 4.89 3.6-5.1 [facility] HospitalHemoglobin2018-08-31 09:51:00* Test Item Value Reference Range Interpretation Comments Hemoglobin (test code = 63377-7) 14.4 12.0-16.0 [facility] HospitalHematocrit2018-08-31 09:51:00* Test Item Value Reference Range Interpretation Comments Hematocrit (test code = 4544-3) 43.4 34.2-44.1 [facility] HospitalMean Corpuscular Nevyhy8970-10-36 09:51:00* Test Item Value Reference Range Interpretation Comments Mean Corpuscular Volume (test code = 787-2) 88.8 81-99 [facility] HospitalMean Corpuscular Kmumqqwryt1486-76-12 09:51:00* Test Item Value Reference Range Interpretation Comments Mean Corpuscular Hemoglobin (test code = 785-6) 29.4 28-32 [facility] HospitalMean Corpuscular Hemoglobin Concent 2018-06-08 09:51:00* Test Item Value Reference Range Interpretation Comments Mean Corpuscular Hemoglobin Concent (test code = 786-4) 33.2 31-35 [facility] HospitalRed Cell Distribution Rifed0132-16-72 09:51:00* Test Item Value Reference Range Interpretation Comments Red Cell Distribution Width (test code = 98464-9) 13.0 11.7 -14.4 [facility] HospitalPlatelet Gyuol0295-76-01 09:51:00* Test Item Value Reference Range Interpretation Comments Platelet Count (test code = 777-3) 185 140-360 [facility] HospitalNeutrophils (%) (Auto)2018-06-08 09:51:00 * Test Item Value Reference Range Interpretation Comments Neutrophils (%) (Auto) (test code = 34073-3) 71.3 38.7-80.0 [facility] HospitalLymphocytes (%) (Auto)2018-06-08 09:51:00 * Test Item Value Reference Range Interpretation Comments Lymphocytes (%) (Auto) (test code = 736-9) 14.6 18.0-39.1 L [facility] HospitalMonocytes (%) (Auto)2018-06-08 09:51:00* Test Item Value Reference Range Interpretation Comments Monocytes (%) (Auto) (test code = 5905-5) 10.9 4.4-11.3 [facility] HospitalEosinophils (%) (Auto)2018-06-08 09:51:00 * Test Item Value Reference Range Interpretation Comments Eosinophils (%) (Auto) (test code = 713-8) 2.3 0.0-6.0 [facility] HospitalBasophils (%) (Auto)2018-06-08 09:51:00* Test Item Value Reference Range Interpretation Comments Basophils (%) (Auto) (test code = 706-2) 0.4 0.0-1.0 [facility] HospitalIM GRANULOCYTES %2018-06-08 09:51:00* Test Item Value Reference Range Interpretation Comments IM GRANULOCYTES % (test code = IM GRANULOCYTES %) 0.5 0.0- 1.0 [facility] HospitalNeutrophils # (Auto)2018-06-08 09:51:00* Test Item Value Reference Range Interpretation Comments Neutrophils # (Auto) (test code = 751-8) 4.1 2.1-6.9 [facility] HospitalLymphocytes # (Auto)2018-06-08 09:51:00* Test Item Value Reference Range Interpretation Comments Lymphocytes # (Auto) (test code = 45839-1) 0.8 1.0-3.2 L [facility] HospitalMonocytes # (Auto)2018-06-08 09:51:00* Test Item Value Reference Range Interpretation Comments Monocytes # (Auto) (test code = 742-7) 0.6 0.2-0.8 [facility] HospitalEosinophils # (Auto)2018-06-08 09:51:00* Test Item Value Reference Range Interpretation Comments Eosinophils # (Auto) (test code = 711-2) 0.1 0.0-0.4 [facility] HospitalBasophils # (Auto)2018-06-08 09:51:00* Test Item Value Reference Range Interpretation Comments Basophils # (Auto) (test code = 704-7) 0.0 0.0-0.1 [facility] HospitalAbsolute Immature Granulocyte (auto 2018-06-08 09:51:00* Test Item Value Reference Range Interpretation Comments Absolute Immature Granulocyte (auto (charanjit t code = Absolute Immature Granulocyte (auto) 0.03 0-0.1 [facility] HospitalWhite Blood Vyrfj4235-42-90 09:51:00* Test Item Value Reference Range Interpretation Comments White Blood Count (test code = 6690-2) 5.69 4.8-10.8 [facility] HospitalRed Blood Vueyr1369-88-03 09:51:00* Test Item Value Reference Range Interpretation Comments Red Blood Count (test code = 789-8) 4.89 3.6-5.1 [facility] HospitalHemoglobin2018-08-31 09:51:00* Test Item Value Reference Range Interpretation Comments Hemoglobin (test code = 49825-3) 14.4 12.0-16.0 [facility] HospitalHematocrit2018-08-31 09:51:00* Test Item Value Reference Range Interpretation Comments Hematocrit (test code = 4544-3) 43.4 34.2-44.1 [facility] HospitalMean Corpuscular Ctcsbu6008-61-57 09:51:00* Test Item Value Reference Range Interpretation Comments Mean Corpuscular Volume (test code = 787-2) 88.8 81-99 [facility] HospitalMean Corpuscular Gsuirzdufr2142-98-24 09:51:00* Test Item Value Reference Range Interpretation Comments Mean Corpuscular Hemoglobin (test code = 785-6) 29.4 28-32 [facility] HospitalMean Corpuscular Hemoglobin Concent 2018-06-08 09:51:00* Test Item Value Reference Range Interpretation Comments Mean Corpuscular Hemoglobin Concent (test code = 786-4) 33.2 31-35 [facility] HospitalRed Cell Distribution Fclql8826-39-55 09:51:00* Test Item Value Reference Range Interpretation Comments Red Cell Distribution Width (test code = 35809-3) 13.0 11.7 -14.4 [facility] HospitalPlatelet Nfcpv7819-11-28 09:51:00* Test Item Value Reference Range Interpretation Comments Platelet Count (test code = 777-3) 185 140-360 [facility] HospitalNeutrophils (%) (Auto)2018-06-08 09:51:00 * Test Item Value Reference Range Interpretation Comments Neutrophils (%) (Auto) (test code = 40794-0) 71.3 38.7-80.0 [facility] HospitalLymphocytes (%) (Auto)2018-06-08 09:51:00 * Test Item Value Reference Range Interpretation Comments Lymphocytes (%) (Auto) (test code = 736-9) 14.6 18.0-39.1 L [facility] HospitalMonocytes (%) (Auto)2018-06-08 09:51:00* Test Item Value Reference Range Interpretation Comments Monocytes (%) (Auto) (test code = 5905-5) 10.9 4.4-11.3 [facility] HospitalEosinophils (%) (Auto)2018-06-08 09:51:00 * Test Item Value Reference Range Interpretation Comments Eosinophils (%) (Auto) (test code = 713-8) 2.3 0.0-6.0 [facility] HospitalBasophils (%) (Auto)2018-06-08 09:51:00* Test Item Value Reference Range Interpretation Comments Basophils (%) (Auto) (test code = 706-2) 0.4 0.0-1.0 [facility] HospitalIM GRANULOCYTES %2018-06-08 09:51:00* Test Item Value Reference Range Interpretation Comments IM GRANULOCYTES % (test code = IM GRANULOCYTES %) 0.5 0.0- 1.0 [facility] HospitalNeutrophils # (Auto)2018-06-08 09:51:00* Test Item Value Reference Range Interpretation Comments Neutrophils # (Auto) (test code = 751-8) 4.1 2.1-6.9 [facility] HospitalLymphocytes # (Auto)2018-06-08 09:51:00* Test Item Value Reference Range Interpretation Comments Lymphocytes # (Auto) (test code = 51660-8) 0.8 1.0-3.2 L [facility] HospitalMonocytes # (Auto)2018-06-08 09:51:00* Test Item Value Reference Range Interpretation Comments Monocytes # (Auto) (test code = 742-7) 0.6 0.2-0.8 [facility] HospitalEosinophils # (Auto)2018-06-08 09:51:00* Test Item Value Reference Range Interpretation Comments Eosinophils # (Auto) (test code = 711-2) 0.1 0.0-0.4 [facility] HospitalBasophils # (Auto)2018-06-08 09:51:00* Test Item Value Reference Range Interpretation Comments Basophils # (Auto) (test code = 704-7) 0.0 0.0-0.1 [facility] HospitalAbsolute Immature Granulocyte (auto 2018-06-08 09:51:00* Test Item Value Reference Range Interpretation Comments Absolute Immature Granulocyte (auto (charanjit t code = Absolute Immature Granulocyte (auto) 0.03 0-0.1 [facility]
--- NOTE | 2020-07-05 18:08 | Progress Note ---
DATE: SUBJECTIVE: The patient has improved, still wheezing. Denying any complaints of chest pain. Shortness of breath has improved. PHYSICAL EXAMINATION: VITAL SIGNS: Temperature 98.2, pulse of 100, blood pressure 132/73, respiratory rate of 18, and O2 saturation 93%. HEENT: Head atraumatic, normocephalic. CHEST: Wheezing bilaterally. HEART: S1 and S2 audible. ABDOMEN: Soft. EXTREMITIES: No pedal edema. NEUROLOGIC: Awake and alert. LABORATORY DATA: White count of 8000, hemoglobin 10.0, platelets 258. Chemistries within normal limits. Coronavirus PCR is negative. Gram stain blood cultures positive for coag-negative Staph. ASSESSMENT/PLAN: Ms. Regalado is a 75-year-old female with asthma exacerbation. Continue the patient on Solu-Medrol nebulizer treatment and Advair. The patient is improving. Blood cultures are positive which is coag-negative Staph, likely contaminant. I will repeat the blood cultures. MD LAURENCE Schroeder/SANG /[id number]
[2020-07-05] MEDS: CEFTRIAXONE SOD 1 GM/NS 50 ML 50 ML IV SCH (18:32)
[2020-07-05] MEDS: AZITHROMYCIN 500MG/NS 250 ML 250 ML IV SCH (19:01)
[2020-07-05] MEDS: MONTELUKAST SODIUM 10 MG TAB PO SCH (20:50)
--- NOTE | 2020-07-05 21:50 | NUR ---
Called to room by patients spouse. Patient agitated standing next to bed, patient removing tele and attempting to remove IV. Reoriented patient that in hospital. IV secured and tele placed back on. Patient verbalized understanding. Patient yelling and being verbally aggressive towards spouse. Re educated that spouse at bedside to help keep patient safe. Patient stated " THIS IS NOT BETWEEN YOU AND ME BUT ME AND HIM." Patient siting in bed with arms crossed and spouse remains at bedside. Patient requesting IH. RT paged regarding IH or breathing treatment and updated patient that RT coming to unit. Patient reports feeling SOB and agitated that cannot keep IH at bedside. Educated patient that not able to keep medication at bedside.
--- NOTE | 2020-07-05 21:55 | NUR ---
Patient removed tele and attempting to remove IV. Stating " I don't trust him because he is going on behind my back and lying to me." Informed patient that and staff her to help. Tele reapplied and IV more secured. Patient in bed with arms crossed.
--- NOTE | 2020-07-05 21:58 | NUR ---
Called to room, patient continue to remove tele and pick at IV. requesting medication to help with agitation. Patient stating " I want my IH." Informed patient that RT notified and coming to unit.
[2020-07-05] MEDS: LORAZEPAM INJ 2 MG/ML VIAL IV PRN (22:00)
--- NOTE | 2020-07-05 22:00 | NUR ---
Patient removed tele again. Tele reapplied and Medication given PRN for agitation. Will continue to monitor. Spoke to RT, still on way to unit. Patient and spouse updated.
--- NOTE | 2020-07-05 22:05 | NUR ---
Noted tele off and sitting at foot of bed. Patient educated on importance. Tele reapplied. Patient continue to verbally abusive towards spouse. Nurse remains at bedside. Patient sitting in bed with arms crossed. States " Why can't you give me my inhaler the doctor prescribed for me." Educated patient that RT on way.
--- NOTE | 2020-07-05 22:10 | NUR ---
RT here on unit. Spouse at bedside. Updated RT that IH given. Will continue to monitor.
--- NOTE | 2020-07-05 22:10 | NUR ---
Patient removed tele again, reeducated on importance and reapplied. Spoke with RT via phone and dose of IH not given earlier. Dose given. Will continue to monitor.
[2020-07-06] VITALS (8 sets, daily range): BP systolic 115–159; BP diastolic 69–111
[2020-07-06] MEDS: SODIUM CHLORIDE 0.9% 1000ML 1,000 ML IV SCH ×2 (02:22→22:51)
--- NOTE | 2020-07-06 04:40 | NUR ---
Dr Moreno on unit, Informed of patient behavior and agitation after dose of solu-medrol. Will see patient.
--- NOTE | 2020-07-06 07:00 | NUR ---
Bedside report and walking rounds completed with oncoming nurse. Patient in bed, at bedside, with call light within reach. No issues or concerns noted.
[2020-07-06] MEDS: ALBUTEROL/IPRATROPIUM 3 ML NEB NEB SCH ×3 (07:03→18:45)
--- NOTE | 2020-07-06 07:10 | NUR ---
RCD PT BED PT IS ALERT AND ORIENTED RESTING ON BED FAMILY AT BED SIDE BED LOW AND LOCKED CALL LIGHT IN REACH
[2020-07-06] MEDS: PREDNISONE 10 MG TAB PO SCH ×2 (09:00→17:00)
[2020-07-06] MEDS ORDERED: RISPERIDONE 0.5 MG TAB PO PRN (14:00)
--- NOTE | 2020-07-06 15:30 | NUR ---
pt refused the teley monitor
[2020-07-06] MEDS: AZITHROMYCIN 500MG/NS 250 ML 250 ML IV SCH (17:25)
[2020-07-06] MEDS: CEFTRIAXONE SOD 1 GM/NS 50 ML 50 ML IV SCH (17:25)
--- NOTE | 2020-07-06 17:39 | Consultation ---
DATE OF CONSULTATION: 07/06/2020 Psychiatric Consultation REASON FOR CONSULTATION: To evaluate the patient's psychosis. HISTORY OF PRESENT ILLNESS: The patient is a 75-year-old female, admitted to the hospital for asthma exacerbation and bronchitis. Psych consulted for psychosis. As per the medical record, the patient has history of asthma and bronchitis. Upon evaluation today, the patient is found to be in the room with . She is alert, awake, and oriented to situation, however, she is little bit tangential, mildly confused. claims her memory has declined for last few months, but he attributes this to progression of old age. states that she was confused while in the hospital, but she is almost back to baseline. They both reports having anxiety and wants to go home. The patient today states that she has things to do and wants to care for her household work at home. She denies any depression. Denies any hallucination. Denies any suicidal or homicidal ideation. She claims she is sleeping and eating okay. PAST PSYCHIATRIC HISTORY: The patient has no past psych history, although reports cognitive decline for last few months. Denies past suicide attempts. Denies alcohol or drug use. FAMILY HISTORY: Mom with Alzheimer. SOCIAL HISTORY: The patient lives with her . MENTAL STATUS EXAM: The patient is elderly female. She is alert, awake, and oriented to situation. Mood is anxious and irritable. Affect is blunt. Psychomotor state is passive. Denies suicidal or homicidal ideation. Denies any hallucination. Thought process is tangential. Insight and judgment are limited to fair. Memory appears to be grossly impaired. CURRENT MEDICATIONS: 1. Prednisone. 2. DuoNeb. 3. Sodium chloride. 4. Advair. 5. Ativan 0.5 mg IV p.r.n. 6. Singulair. 7. Azithromycin. 8. Ceftriaxone. 9. Albuterol. 10. Ondansetron. LABORATORY DATA: WBC is 8.26, RBC 3.40, hemoglobin 10, hematocrit 31.4, and platelets 258. Chemistry; sodium 141, potassium 4.2, chloride 107, CO2 26, BUN 14, and creatinine 0.62. ASSESSMENT: 1. Adjustment disorder with mixed mood. 2. Rule out dementia. 3. Rule out delirium. PLAN: 1. To Zoloft 25 mg p.o. daily. 2. Add Risperdal 0.5 mg p.o. q.6 hours as needed. 3. Continue with Ativan p.r.n. IV. 4. Monitor for mood. 5. Supportive therapy. Thank you for this consultation. Dictated by Isis Ascencio PA-C MD MARIE BurnetteV/MODL /[id number]
--- NOTE | 2020-07-06 18:41 | NUR ---
PT RESTING ON BED BED SIDE REPORT GIVEN TO ONCOMING NURSE
[2020-07-06] MEDS: SALMETEROL/FLUTICASONE 500/50 INH SCH (18:44)
[2020-07-06] MEDS: MONTELUKAST SODIUM 10 MG TAB PO SCH (20:51)
--- NOTE | 2020-07-06 22:30 | Progress Note ---
DATE: SUBJECTIVE: The patient's wheezing has improved. She is denying any complaints of chest pain. PHYSICAL EXAMINATION: VITAL SIGNS: Temperature 98.1, pulse of 110, and blood pressure 139/85. CHEST: Still wheezing, but better than yesterday. HEART: S1 and S2 audible. ABDOMEN: Soft. LABORATORY DATA: White count of 8000, hemoglobin 10.0, and platelets 258. Chemistry reviewed. Repeat blood cultures are negative so far. ASSESSMENT/PLAN: Asthma exacerbation. Steroid dose is reduced possibly due to mood problem and psychosis. Continue the patient on IV antibiotic, nebulizer treatment, and Advair. MD LAURENCE Schroeder/SANG /[id number]
[2020-07-07] VITALS: BP 152/79
[2020-07-07 04:00] VITALS: BP 140/74
[2020-07-07] MEDS: ALBUTEROL/IPRATROPIUM 3 ML NEB NEB SCH (04:00)
[2020-07-07] MEDS ORDERED: ALBUTEROL/IPRATROPIUM 3 ML NEB ONE (07:03)
--- NOTE | 2020-07-07 08:06 | Discharge Summary ---
DISCHARGE DIAGNOSIS: Acute exacerbation of chronic obstructive pulmonary disease. HISTORY OF PRESENT ILLNESS AND HOSPITAL COURSE: See hospital chart for full details. The patient is a lady, who was admitted with acute exacerbation of COPD. She was placed on IV antibiotics, O2, nebulizer treatment and steroid therapy. Of note, the patient did have significant issues with confusion, this seemed to be occurring after her Solu-Medrol dosing, so she was then switched over to p.o. prednisone, which seemed to improve this significantly because within 30-40 minutes after getting Solu-Medrol, she start taken out her IVs, taken off for telemetry and demanded to go home. The counseled with her which helped tremendously and only switched over to p.o. prednisone that also helped tremendously. She was seen by Psychiatry, who felt like she was having some adjustment disorder and maybe some early stage dementia. Please see their notes for full details. On the time of the morning of admission, patient was feeling really good. Her lung exams was clear. She really wanted to go home and finish up her treatment, so she was sent home with p.o. Ceftin. p.o. prednisone as well as a rescue inhaler and she is going to follow up with her sales consulting director later this week. Please see also for full details. MD ROBERTO You/SANG /[id number]
[2020-07-07] MEDS ORDERED: SERTRALINE HCL 50 MG TAB PO SCH (09:00)
== END 2020-07-07 06:20 | disposition home or self-care (01) | DRG 871 ==
LOC: ER 14:45 → ERHOLD 18:11 → MED/SURG2 23:21
PROVIDERS: ADMIT Internal Medicine; ATTEND Internal Medicine
DX: A41.9 Sepsis, unspecified organism (principal); J96.01 Acute respiratory failure with hypoxia; J15.9 Unspecified bacterial pneumonia; J44.1 Chronic obstructive pulmonary disease with (acute) exacerbation; J45.902 Unspecified asthma with status asthmaticus; J44.0 Chronic obstructive pulmonary disease with (acute) lower respiratory infection; F03.91 Unspecified dementia, unspecified severity, with behavioral disturbance; F05 Delirium due to known physiological condition; R41.0 Disorientation, unspecified; Z11.59 Encounter for screening for other viral diseases; T38.0X5A Adverse effect of glucocorticoids and synthetic analogues, initial encounter; Z85.3 Personal history of malignant neoplasm of breast; F41.9 Anxiety disorder, unspecified; D64.9 Anemia, unspecified; F43.23 Adjustment disorder with mixed anxiety and depressed mood; Z87.891 Personal history of nicotine dependence
CPT/HCPCS: 36415; 36600; 71045; 80048; 80053; 80061; 82550; 82553; 82805; 83735; 83880; 84484; 85025; 85610; 85730; 87040; 87071; 87205; 93005; 94640; 94760; 99284; J0456; J0696; J2060; J2920; J2930; J7030; J7512